=== PATIENT | female | born 1940 | race Caucasian/White ===

== ENCOUNTER → 2016-07-23 | Outpatient (CLI) | payer MEDICARE, MEDICAID ==
[~2016-07-23] MED LIST: /ATOR40TA; /ATOR40TA OR; /DOXA1TA; /DOXA1TA OR; /DULO30CA; /DULO30CA OR; /ESOM40CA; /ESOM40CA OR; /FENO48TA; /FENO48TA OR; /PANT40TA; ALB2.5NEB INH; ALDA25TA2 PO; ALPR0.5T3; ALPR0.5T3 OR; ALPR0.5T3 PO; AMLO10TA; AMLO10TA2 PO; AMLO10TAB OR; ASPI325T; ASPI325T OR; ASPI81TA7 PO; ASPI81TA85 PO; ATEN100T PO; ATEN25TA; ATEN25TA PO; ATEN50TA2 OR; AVAN8TAB3; AVAN8TAB3 OR; AVAP300T; AVAP300T OR; CALC1TAB30 PO; CALCCHW12; CALCCHW12 OR; CALCTAB22; CLON0.2T OR; COLA100C2; CRES20TA OR; CRES20TA PO; DOXA1TAB71 PO; ECOT325T5; FERR325T; FERR325T OR; FERR325T3 PO; FLEXERIL; FLON0.05; FLUT1SPR2; FURO40TA2; FURO40TA2 PO; GAVISCON; GAVISCON OR; GLIP10TA13 PO; GLIP10TA18; GLIP5TAB2; GLIP5TAB2 PO; GLUC500T; GLUC500T OR; HYDR100T PO; HYDR25T PO; HYDR25TA6; INSUDET SC; JANU100T PO; Januvia OR; KLOR10TA; KLOR10TA OR; LASI20TA PO; LASI40TA; LASI40TA OR; LEVE1INJ5 SC; LOSA100T36 PO; LOSARTAN OR; METF500T PO; METHY25TA PO; MULTIVIT; MULTIVIT OR; NASONEX; NIAS500T2 OR; NICO21PAT TD; NORC10TA2 PO; OMEGA 3; OMEGA 3 OR; SENN15TA2 OR; SENNA-DOCUSATE; SERT-138 PO; SERT100T; SERT50TA PO; SPIR25TA2 OR; TENO25TA; THERGRAN; TIRO25CA PO; TRAM50TA2; TRAZO50TA PO; TUMS500C; ULTR200T; ULTR200T OR; VICO5TAB; VICO5TAB OR; VITA200C; VITA400C; VITA400C OR; VITMTA PO; ZOLO100T; ZOLO100T OR; [UNRECOGNIZED DRUG - OTHER]; [UNRECOGNIZED DRUG - OTHER]; [UNRECOGNIZED DRUG - REMARK]; amiodipine; senna OR; vitamin d OR
--- NOTE | 2016-07-23 23:12 | ECWPNPC ---
PATIENT NAME: SOURAV DALE : 1940 GENDER: FEMALE VISIT DATE: 07/23/2016 DISCHARGE DATE: 07/23/16 1617 VISIT LOCKED DATE TIME: PHYSICIAN: DAYANNA MCQUEEN RESOURCE: DAYANNA MCQUENE REASON FOR APPOINTMENT 1. MEDS HISTORY OF PRESENT ILLNESS HISTORY OF PRESENT ILLNESS: HERE FOR F/U OF PERSISTENT LBP AND RIGHT LEG PAIN AND PARATHESIA. RATING PAIN VAS 10/10.USING HYDROCODONE 10/325 1Q 4-6 HR PRN PAIN.RECENT HOSPITALIZATION AFTER FALL INJURY.HAD SIJ INJECTION WHILE HOSPITALIZED THAT GAVE HER APROX. 2 DAYS IMPROVEMENT.HAS CUT DOWN ON HYDROCODONE TO 4 TAB DAILY.REPORTS THAT SHE HAS BEEN VERY DIZZY LATELY AND JUST DOESNT FEEL RIGHT.SHE FOLLOWS WITH NEPHROLOGY FOR BORDERLINE KIDNEY FUNCTION. PAIN THE PATIENT DESCRIBES THE PAIN... THE PATIENT DESCRIBES THE PAIN... THE PATIENT DESCRIBES THE PAIN... FALL RISK SCREENING: SCREENING :NO FALLS IN THE PAST YEAR CURRENT MEDICATIONS TAKING SERTRALINE HCL 100 MG TABLET 2 TABLET ORALLY DAILY TAKING FERROUS SULFATE 324 MG TABLET 1 TAB ORALLY DAILY TAKING ATENOLOL 50 50MG TABLET 1 ORAL BID TAKING CRESTOR 20 MG TABLET 1 TABLET ORALLY ONCE A DAY TAKING MULTI MINERALS-AMINO ACIDS CAPSULE 1 TAB ORALLY DAILY TAKING AMLODIPINE 10 MG 1 TAB(S) P.O. DAILY TAKING ASPIRIN ADULT LOW DOSE 81 MG TABLET DELAYED RELEASE 1 TABLET ORALLY ONCE A DAY TAKING ALBUTEROL SULFATE HFA 108 (90 BASE) MCG/ACT AEROSOL SOLUTION 2 PUFFS NEEDED INHALATION EVERY 4 HRS TAKING LEVOTHYROXINE SODIUM 25 MCG TABLET 1 TABLET ORALLY ONCE A DAY TAKING HYDRALAZINE HCL 25 MG TABLET 1 TABLET ORALLY BID PRN TAKING ALBUTEROL SULFATE (2.5 MG/3ML) 0.083% NEBULIZATION SOLUTION 3 ML INHALATION Q6HR NEEDED TAKING FUROSEMIDE 40 MG TABLET 1 TABLET ORALLY ONCE A DAY TAKING NICOTINE 21 MG/24HR PATCH 24 HOUR 1 PATCH TO SKIN TRANSDERMAL ONCE A DAY TAKING TRAZODONE HCL 50 MG TABLET 1 TABLET AT BEDTIME ORALLY ONCE A DAY TAKING LOSARTAN POTASSIUM 100 MG TABLET 1 TABLET ORALLY ONCE A DAY TAKING SPIRONOLACTONE 25 MG TABLET 1 TABLET ORALLY TWICE A DAY TAKING METHYLDOPA 250 MG TABLET 1 TABLET ORALLY TWICE A DAY TAKING JANUVIA 100 MG TABLET HALF TAB ORALLY DAILY TAKING GLIPIZIDE 5 MG TABLET 1 TABLET ORALLY BID TAKING CALCIUM 600 + D 600-400 MG-UNIT TABLET 1 TABLET ORALLY ONCE A DAY TAKING NORCO 10-325 MG TABLET 1 TABLET NEEDED ORALLY EVERY 6 H PRN MDD4 TAKING LEVEMIR 100 UNIT/ML SOLUTION 30 UNITS SUBCUTANEOUS TWICE A DAY NOT-TAKING DIAZEPAM 10 MG TABLET 1 TABLET ORALLY ONCE PRE PRPOCEDURE, NOTES: 12-18-15 1025 NOT-TAKING SENNA-GEN 8.6 MG TABLET 1 TAB ORALLY DAILY NOT-TAKING VITAMIN D 1.25 MG TABLET 1 TABLET ORALLY TWICE A MONTH NOT-TAKING DOXAZOSIN MESYLATE 1 MG TABLET 1 TABLET ORALLY BID NOT-TAKING POTASSIUM CHLORIDE 10 10 MEQ TABLET T TAB ORAL DAILY NOT-TAKING FLUTICASONE FUROATE 27.5 MCG/SPRAY SUSPENSION 2 PUFFS IN EACH NOSTRIL NASALLY ONCE A DAY NOT-TAKING METFORMIN HCL 500 MG TABLET 2 TABS IN AM, 1 TAB AT NOON, 2 TABS IN PM ORALLY TID NOT-TAKING NEXIUM 40 MG CAPSULE DELAYED RELEASE 1 TAB ORALLY DAILY NOT-TAKING VITAMIN E 400 UNIT CAPSULE 1 TAB ORALLY DAILY NOT-TAKING OMEGA 3 1000 MG CAPSULE 1 TAB ORALLY BID NOT-TAKING GAVISCON 80-14.2 MG TABLET CHEWABLE 2 TABS ORALLY DAILY DISCONTINUED CALCIUM 500 + D3 500-600 MG-UNIT TABLET ORALLY DISCONTINUED ENOXAPARIN SODIUM 40 MG/0.4ML SOLUTION 0.4 ML SUBCUTANEOUS ONCE A DAY DISCONTINUED ALPRAZOLAM 0.5 MG TABLET 1 TAB ORALLY BID, NOTES: 12-17-152119 DISCONTINUED CEFTRIAXONE SODIUM 1 GM SOLUTION RECONSTITUTED INTRAVENOUS BID, NOTES: 12-18-15 1000 MEDICATION LIST REVIEWED AND RECONCILED WITH THE PATIENT PAST MEDICAL HISTORY CONGESTIVE HEART FAILURE HYPERTENSION HIGH CHOLESTEROL ARTERIAL HEART DISEASE TYPE II DIABETES ACID REFLUX OSTEOARTHRITIS SCOLIOSIS DEGENERATIVE DISC DISEASE VERTIGO SHOULDER PAIN CIRCULATION PROBLEMS IN LOWER EXTREMITIES EMPHYSEMA ARRESTED TUBERCULOSIS KIDNEY STONES HEART MURMUR ULCERS, DUODINAL FIBROMYALGIA HIATAL HERNIA ALLERGIES BIAXIN: MENTAL ISSUES: SIDE EFFECTS ANSHU INHIBITORS: SHORTNESS OF BREATH: ALLERGY CLARITHROMYCIN: NAUSEA/VOMITING: SIDE EFFECTS TRAMADOL HCL: CONFUSION: CONTRAINDICATION CYMBALTA: CONFUSION: CONTRAINDICATION IBUPROFEN: BLEEDING ULCERS: CONTRAINDICATION HYDROXYZINE HCL: HALLUCINATIONS: CONTRAINDICATION SOCIAL HISTORY GENERAL: PAIN CLINIC PFS, CLERGY, PUBLIC HEALTH REFERRALS CLERGY REFERRAL NEEDED?NO WAS THE PROVIDER NOTIFIED OF ANY PERTINENT INFO?NO PFS REFERRAL NEEDED?NO PUBLIC HEALTH REFERRAL NEEDED?NO PATIENT: ____. REVIEW OF SYSTEMS CONSTITUTIONAL: ANY CHANGE IN YOUR MEDICAL CONDITION? NO . CHILLS NO . FEVER NO . INFECTION: DO YOU HAVE NEW INFECTIONS? NO . DO YOU HAVE HISTORY OF MRSA? NO . MUSCULOSKELETAL: ANY NEW PATTERNS OF PAIN OR NUMBNESS? YES, HAVING LOTS OF PAIN IN HER NECK TODAY, HEAD AND ACROSS HER NECK, AND UPPER BACK. ARMS AND HANDS ARE PAINFUL AND WEAK. . GASTROENTEROLOGY: ANY NEW CHANGE IN BOWEL CONTROL? NO . GENITOURINARY: ANY NEW CHANGE IN BLADDER CONTROL? NO . IS THERE A CHANCE YOU COULD BE ? NO . HEMATOLOGY/LYMPH: DO YOU TAKE ANY BLOOD THINNERS? (FOR EXAMPLE- COUMADIN, PLAVIX, AGGRENOX, PLATEL, PRADAXA, OR XARELTO) NO . WHEN WAS YOUR LAST DOSE? DATE: TIME: . NEUROLOGY: HAVE YOU FALLEN IN THE PAST 6 MONTHS? NO . ANY NEW EXTREMITY NUMBNESS OR WEAKNESS? NO . CARDIOLOGY: DO YOU HAVE A PACEMAKER OR DEFIBRILLATOR? NO . RESPIRATORY: HAVE YOU BEEN SICK IN THE PAST WEEK? NO . FEVER NO . FLU LIKE SYMPTOMS? NO . COUGH NO . INTEGUMENTARY: DO YOU HAVE ANY RASHES OR OPEN SORES? NO . ALLERGIC/IMMUNO: ARE YOU ALLERGIC TO SHELLFISH OR IV DYE? NO . ANY NEW ALLERGIES? NO . PSYCHIATRIC: DO YOU HAVE THOUGHTS OF HURTING YOURSELF OR SOMEONE ELSE? NO . ARE YOU ABUSED, NEGLECTED, OR IN AN UNSAFE ENVIRONMENT? NO . ENDOCRINOLOGY: ARE YOU DIABETIC? YES . OTHER: DO YOU NEED ANY PRESCRIPTIONS? YES . IF YES, PLEASE LIST: HYDROCODONE . ANY NEW PROBLEMS WITH YOUR MEDICATIONS? NO . WHEN DID YOU LAST EAT? ____ . WHEN DID YOU LAST DRINK? ____ . WHAT DID YOU LAST DRINK? ____ . NAME OF PERSON DRIVING YOU HOME? ____ . DO YOU HAVE ANY OTHER QUESTIONS OR CONCERNS NO . REVIEWED BY: PROVIDER: DAYANNA ROSSI . VITAL SIGNS WT 185 LBS, HT 64.5 IN, BMI 31.26 INDEX, BP 142/66 MM HG, HR 65 /MIN, RR 16 /MIN, TEMP 99.5 F, OXYGEN SAT % 93, NA INITIALS [id number], REVIEWED BY: CM. ASSESSMENTS LOW BACK PAIN DUE TO DISPLACEMENT OF INTERVERTEBRAL DISC - M51.26 (PRIMARY) CHRONIC PRESCRIPTION OPIATE USE - Z79.891 TREATMENT LOW BACK PAIN DUE TO DISPLACEMENT OF INTERVERTEBRAL DISC REFILL NORCO TABLET, 10-325 MG, 1 TABLET NEEDED, ORALLY, EVERY 6 H PRN MDD4, 30 DAY(S), 120, REFILLS 0 NOTES: ISTOP REGISTRY REVIEWED AND DEMNOSTRATES COMPLLIANCE. BRINGS IN MEDICATIONS WHICH IS APPROPRIATE FOR WHAT WAS DISPENSED. RECENT URINE TOXICOLOGY REVIEWED. NO UNAUTHORIZED MEDICATIONS. NO ILLICIT SUBSTANCES AND PRESCRIBED MEDICATIONS WERE PRESENT. URINE TOX TODAY, RISKS AND BENEFITS OF NARCOTIC/OPIOD MEDICATIONS WERE REVIEWED WITH PATIENT - THIS INCLUDES BUT IS NOT LIMITED TO RISK OF DEPENDANCE/DEVELOPMENT OF ADDICTION, MOOD DISTURBANCE AND DEPRESSION, OSTEOPOROSIS, HORMONAL AND LABIDAL CHANGES, RESPIRATORY DEPRESSION AND . PATIENT IS ADVISED NOT TO DRIVE WHILE ON THESE MEDICATIONS. PROCEDURE CODES G8783 BP SCR PRFRM RCMDD DEFIND SCR INTVL G8730 PAIN ASSESS POS TOOL F/U PLAN DOC 3016F PT SCRND UNHLTHY [place] USE 1123F ACP DISCUSS/DSCN MKR DOCD 1036F TOBACCO NON-USER 0518F FALL PLAN OF CARE DOCD G8427 DOC MEDS VERIFIED W/PT OR RE G8417 BMI >=30 CALCUATE W/FOLLOWUP 3288F FALL RISK ASSESSMENT DOCD DISPOSITION & COMMUNICATION FOLLOW UP 2 MONTHS ELECTRONICALLY SIGNED BY FLO SOSA ON 07/23/2016 AT 05:36 PM EDT DISCLAIMER : THIS IS A VISIT SUMMARY EXTRACTED FROM THE [employer] CHART. IT IS NOT A COPY OF THE [employer] PROGRESS NOTE. MTDD
== END ==
LOC: M PAIN 15:00
PROVIDERS: ATTEND Nurse Practitioner Family
DX: Z09 Encounter for follow-up examination after completed treatment for conditions other than malignant neoplasm (principal); G89.29 Other chronic pain; M51.26 Other intervertebral disc displacement, lumbar region; I50.9 Heart failure, unspecified; I10 Essential (primary) hypertension; I25.10 Atherosclerotic heart disease of native coronary artery without angina pectoris; E11.9 Type 2 diabetes mellitus without complications; K21.9 Gastro-esophageal reflux disease without esophagitis; E78.00 Pure hypercholesterolemia, unspecified; M19.90 Unspecified osteoarthritis, unspecified site; M41.9 Scoliosis, unspecified; I99.9 Unspecified disorder of circulatory system; J43.9 Emphysema, unspecified; R01.1 Cardiac murmur, unspecified; M79.7 Fibromyalgia; Z79.82 Long term (current) use of aspirin; Z79.899 Other long term (current) drug therapy; Z79.4 Long term (current) use of insulin; Z79.84 Long term (current) use of oral hypoglycemic drugs; Z88.5 Allergy status to narcotic agent; Z88.8 Allergy status to other drugs, medicaments and biological substances

== ENCOUNTER → 2016-08-02 | Outpatient (REF) | payer MEDICARE, MEDICAID | LOC: M LAB REF 16:46 | PROVIDERS: ATTEND Internal Medicine Medical Oncology | DX: C91.90 Lymphoid leukemia, unspecified not having achieved remission (principal) ==

== ENCOUNTER → 2016-08-24 | Outpatient (REF) | payer MEDICARE, MEDICAID | LOC: M LAB REF 16:58 | PROVIDERS: ATTEND Internal Medicine Nephrology | DX: R30.0 Dysuria (principal) ==

== ENCOUNTER → 2016-10-12 | Outpatient (CLI) | payer MEDICARE, MEDICAID ==
--- NOTE | 2016-10-13 23:28 | ECWPNPC ---
PATIENT NAME: SOURAV DALE : 1940 GENDER: FEMALE VISIT DATE: 10/12/2016 DISCHARGE DATE: 10/12/16 1551 VISIT LOCKED DATE TIME: PHYSICIAN: DAYANNA MCQUEEN RESOURCE: DAYANNA MCQUEEN REASON FOR APPOINTMENT 1. CHRONIC PAIN HISTORY OF PRESENT ILLNESS HISTORY OF PRESENT ILLNESS: HERE FOR F/U OF PERSISTENT LBP AND RIGHT LEG PAIN AND PARATHESIA. RATING PAIN VAS 10/10.USING HYDROCODONE 10/325 1Q 4-6 HR PRN PAIN.HAS CUT DOWN ON HYDROCODONE TO 4 TAB DAILY.REPORTS PERIODIC DIZZY SPELLS THAT IS A CHRONIC ISSUE.SHE FOLLOWS WITH NEPHROLOGY FOR BORDERLINE KIDNEY FUNCTION.OFFERED OPTIONS TO INCLUDE INJECTION THERAPY OR MEDICATION CHANGES BUT SHE DOES NOT WANT TO PURSUE ALTERNATIVES. PAIN THE PATIENT DESCRIBES THE PAIN... THE PATIENT DESCRIBES THE PAIN... THE PATIENT DESCRIBES THE PAIN... THE PATIENT DESCRIBES THE PAIN... FALL RISK SCREENING: SCREENING :NO FALLS IN THE PAST YEAR CURRENT MEDICATIONS TAKING SERTRALINE HCL 100 MG TABLET 2 TABLET ORALLY DAILY TAKING FERROUS SULFATE 324 MG TABLET 1 TAB ORALLY DAILY TAKING ATENOLOL 50 50MG TABLET 1 ORAL BID TAKING CRESTOR 20 MG TABLET 1 TABLET ORALLY ONCE A DAY TAKING MULTI MINERALS-AMINO ACIDS CAPSULE 1 TAB ORALLY DAILY TAKING AMLODIPINE 10 MG 1 TAB(S) P.O. DAILY TAKING ASPIRIN ADULT LOW DOSE 81 MG TABLET DELAYED RELEASE 1 TABLET ORALLY ONCE A DAY TAKING ALBUTEROL SULFATE HFA 108 (90 BASE) MCG/ACT AEROSOL SOLUTION 2 PUFFS NEEDED INHALATION EVERY 4 HRS TAKING LEVOTHYROXINE SODIUM 25 MCG TABLET 1 TABLET ORALLY ONCE A DAY TAKING HYDRALAZINE HCL 25 MG TABLET 1 TABLET ORALLY BID PRN TAKING ALBUTEROL SULFATE (2.5 MG/3ML) 0.083% NEBULIZATION SOLUTION 3 ML INHALATION Q6HR NEEDED TAKING FUROSEMIDE 40 MG TABLET 1 TABLET ORALLY ONCE A DAY TAKING NICOTINE 21 MG/24HR PATCH 24 HOUR 1 PATCH TO SKIN TRANSDERMAL ONCE A DAY TAKING TRAZODONE HCL 50 MG TABLET 1 TABLET AT BEDTIME ORALLY ONCE A DAY TAKING LOSARTAN POTASSIUM 100 MG TABLET 1 TABLET ORALLY ONCE A DAY TAKING METHYLDOPA 250 MG TABLET 1 TABLET ORALLY TWICE A DAY TAKING JANUVIA 100 MG TABLET HALF TAB ORALLY DAILY TAKING GLIPIZIDE 5 MG TABLET 1 TABLET ORALLY BID TAKING CALCIUM 600 + D 600-400 MG-UNIT TABLET 1 TABLET ORALLY ONCE A DAY TAKING LEVEMIR 100 UNIT/ML SOLUTION 30 UNITS SUBCUTANEOUS TWICE A DAY TAKING NORCO 10-325 MG TABLET 1 TABLET NEEDED ORALLY EVERY 6 H PRN MDD4 NOT-TAKING SPIRONOLACTONE 25 MG TABLET 1 TABLET ORALLY TWICE A DAY NOT-TAKING DIAZEPAM 10 MG TABLET 1 TABLET ORALLY ONCE PRE PRPOCEDURE, NOTES: 12-18-15 1025 NOT-TAKING SENNA-GEN 8.6 MG TABLET 1 TAB ORALLY DAILY NOT-TAKING VITAMIN D 1.25 MG TABLET 1 TABLET ORALLY TWICE A MONTH NOT-TAKING DOXAZOSIN MESYLATE 1 MG TABLET 1 TABLET ORALLY BID NOT-TAKING POTASSIUM CHLORIDE 10 10 MEQ TABLET T TAB ORAL DAILY NOT-TAKING FLUTICASONE FUROATE 27.5 MCG/SPRAY SUSPENSION 2 PUFFS IN EACH NOSTRIL NASALLY ONCE A DAY NOT-TAKING METFORMIN HCL 500 MG TABLET 2 TABS IN AM, 1 TAB AT NOON, 2 TABS IN PM ORALLY TID NOT-TAKING NEXIUM 40 MG CAPSULE DELAYED RELEASE 1 TAB ORALLY DAILY NOT-TAKING VITAMIN E 400 UNIT CAPSULE 1 TAB ORALLY DAILY NOT-TAKING OMEGA 3 1000 MG CAPSULE 1 TAB ORALLY BID NOT-TAKING GAVISCON 80-14.2 MG TABLET CHEWABLE 2 TABS ORALLY DAILY MEDICATION LIST REVIEWED AND RECONCILED WITH THE PATIENT PAST MEDICAL HISTORY CONGESTIVE HEART FAILURE HYPERTENSION HIGH CHOLESTEROL ARTERIAL HEART DISEASE TYPE II DIABETES ACID REFLUX OSTEOARTHRITIS SCOLIOSIS DEGENERATIVE DISC DISEASE VERTIGO SHOULDER PAIN CIRCULATION PROBLEMS IN LOWER EXTREMITIES EMPHYSEMA ARRESTED TUBERCULOSIS KIDNEY STONES HEART MURMUR ULCERS, DUODINAL FIBROMYALGIA HIATAL HERNIA ALLERGIES BIAXIN: MENTAL ISSUES: SIDE EFFECTS ANSHU INHIBITORS: SHORTNESS OF BREATH: ALLERGY CLARITHROMYCIN: NAUSEA/VOMITING: SIDE EFFECTS TRAMADOL HCL: CONFUSION: CONTRAINDICATION CYMBALTA: CONFUSION: CONTRAINDICATION IBUPROFEN: BLEEDING ULCERS: CONTRAINDICATION HYDROXYZINE HCL: HALLUCINATIONS: CONTRAINDICATION REVIEW OF SYSTEMS REVIEWED BY: PROVIDER: DAYANNA ROSSI . CONSTITUTIONAL: ANY CHANGE IN YOUR MEDICAL CONDITION? NO . CHILLS NO . FEVER NO . INFECTION: DO YOU HAVE NEW INFECTIONS? NO . DO YOU HAVE HISTORY OF MRSA? NO . MUSCULOSKELETAL: ANY NEW PATTERNS OF PAIN OR NUMBNESS? YES PAIN IS MORE CONSTANT . GASTROENTEROLOGY: ANY NEW CHANGE IN BOWEL CONTROL? NO . GENITOURINARY: ANY NEW CHANGE IN BLADDER CONTROL? NO . IS THERE A CHANCE YOU COULD BE ? NO . HEMATOLOGY/LYMPH: DO YOU TAKE ANY BLOOD THINNERS? (FOR EXAMPLE- COUMADIN, PLAVIX, AGGRENOX, PLATEL, PRADAXA, OR XARELTO) NO . WHEN WAS YOUR LAST DOSE? DATE: TIME: . NEUROLOGY: HAVE YOU FALLEN IN THE PAST 6 MONTHS? NO . ANY NEW EXTREMITY NUMBNESS OR WEAKNESS? NO . CARDIOLOGY: DO YOU HAVE A PACEMAKER OR DEFIBRILLATOR? NO . RESPIRATORY: HAVE YOU BEEN SICK IN THE PAST WEEK? NO . FEVER NO . FLU LIKE SYMPTOMS? NO . COUGH NO . INTEGUMENTARY: DO YOU HAVE ANY RASHES OR OPEN SORES? NO . ALLERGIC/IMMUNO: ARE YOU ALLERGIC TO SHELLFISH OR IV DYE? NO . ANY NEW ALLERGIES? NO . PSYCHIATRIC: DO YOU HAVE THOUGHTS OF HURTING YOURSELF OR SOMEONE ELSE? NO . ARE YOU ABUSED, NEGLECTED, OR IN AN UNSAFE ENVIRONMENT? NO . ENDOCRINOLOGY: ARE YOU DIABETIC? NO . OTHER: DO YOU NEED ANY PRESCRIPTIONS? YES PAIN MEDS HYDROCODONE 10/325 . IF YES, PLEASE LIST: ____ . ANY NEW PROBLEMS WITH YOUR MEDICATIONS? NO . WHEN DID YOU LAST EAT? ____ . WHEN DID YOU LAST DRINK? ____ . WHAT DID YOU LAST DRINK? ____ . NAME OF PERSON DRIVING YOU HOME? ____ . DO YOU HAVE ANY OTHER QUESTIONS OR CONCERNS NO . VITAL SIGNS WT 191.0 LBS, HT 64.5 IN, BMI 32.28 INDEX, BP 150/66 MM HG, HR 68 /MIN, RR 18 /MIN, TEMP 98.0 F, OXYGEN SAT % 96%, NA INITIALS TL 1516, REVIEWED BY: KG. EXAMINATION GENERAL EXAMINATION: LUNGS:LUNG SOUNDS ARE CLEAR. HEART:HEART RATE REGULAR. MUSCULOSKELETAL:*. MUSCULOSKELETAL:*, MUSCLE STRENGTH TESTING 3/5 BILATERAL, PALPATION: + FOR PAIN OVER L/S SPINE. + FOR PAIN OVER L/S PARSPINALS. ASSESSMENTS LOW BACK PAIN DUE TO DISPLACEMENT OF INTERVERTEBRAL DISC - M51.26 (PRIMARY) CHRONIC PRESCRIPTION OPIATE USE - Z79.891 TREATMENT LOW BACK PAIN DUE TO DISPLACEMENT OF INTERVERTEBRAL DISC REFILL NORCO TABLET, 10-325 MG, 1 TABLET NEEDED, ORALLY, EVERY 6 H PRN MDD4, 30 DAY(S), 120, REFILLS 0 NOTES: ISTOP REGISTRY REVIEWED AND DEMNOSTRATES COMPLLIANCE. BRINGS IN MEDICATIONS WHICH IS APPROPRIATE FOR WHAT WAS DISPENSED. RECENT URINE TOXICOLOGY REVIEWED. NO UNAUTHORIZED MEDICATIONS. NO ILLICIT SUBSTANCES AND PRESCRIBED MEDICATIONS WERE PRESENT. PROCEDURE CODES FA211 ESTABILISHED PATIENT [facility] FACILITY CHARGE G8730 PAIN ASSESS POS TOOL F/U PLAN DOC G8427 DOC MEDS VERIFIED W/PT OR RE DISPOSITION & COMMUNICATION FOLLOW UP 3 MONTHS ELECTRONICALLY SIGNED BY FLO SOSA ON 10/13/2016 AT 05:29 PM EDT DISCLAIMER : THIS IS A VISIT SUMMARY EXTRACTED FROM THE [employer] CHART. IT IS NOT A COPY OF THE [employer] PROGRESS NOTE. ALEX
== END | disposition home or self-care (01) ==
LOC: M PAIN 15:00
PROVIDERS: ATTEND Nurse Practitioner Family
DX: G89.29 Other chronic pain (principal); M51.26 Other intervertebral disc displacement, lumbar region; I50.9 Heart failure, unspecified; I11.0 Hypertensive heart disease with heart failure; E78.00 Pure hypercholesterolemia, unspecified; I48.91 Unspecified atrial fibrillation; E11.9 Type 2 diabetes mellitus without complications; K21.9 Gastro-esophageal reflux disease without esophagitis; M19.90 Unspecified osteoarthritis, unspecified site; M41.9 Scoliosis, unspecified; M25.519 Pain in unspecified shoulder; J43.9 Emphysema, unspecified; R01.1 Cardiac murmur, unspecified; M79.7 Fibromyalgia; K44.9 Diaphragmatic hernia without obstruction or gangrene; K26.9 Duodenal ulcer, unspecified as acute or chronic, without hemorrhage or perforation; Z79.899 Other long term (current) drug therapy; Z79.84 Long term (current) use of oral hypoglycemic drugs; Z79.4 Long term (current) use of insulin; Z79.82 Long term (current) use of aspirin; Z88.1 Allergy status to other antibiotic agents; Z88.5 Allergy status to narcotic agent; Z88.8 Allergy status to other drugs, medicaments and biological substances

== ENCOUNTER → 2016-11-08 | Outpatient (CLI) | payer MEDICARE, MEDICAID ==
[~2016-11-08] MED LIST changes: +ASPI1TAB PO; +ASPI1TAB15 PO; -ASPI81TA7 PO; +COLA100C5 PO; +COMBAER6 INH; -GLIP10TA13 PO; +GLIP1TAB51 PO; +HYDR-3363 PO; +HYDR-3910 PO; +HYDR-3911 PO; -HYDR25T PO; +HYDR50TA PO; +LEVA1TAB PO; +LEVO250T12; +LEVO250T12 PO; +MAGN400T PO; -METF500T PO; +METF500T13 PO; +MORP15TASA PO; +NICODIS TD; +NICODIS3 TD; -NORC10TA2 PO; +NORC10TA21 PO; +NORC1TAB4 PO; +NORCOTAB PO; +PRED10TA2 PO; +SYNT25TA PO; +TRAZ50TA11 PO
--- NOTE | 2016-11-08 16:44 | REP ---
Low-dose lung screening CT without IV contrast: There are no comparison studies. There is a 6.6 cm left lower lobe lung mass. This extends into the left hilus. Just posterior inferior to this is a satellite left lower lobe pleural-based nodule measuring 18 mm. I suspect the left hilus is diffusely enlarged, however, this is better evaluated on a chest CT with IV contrast. There is a 9 mm nodule anteriorly in the left upper lobe on image 32. There are several satellite nodules posterior to the left lower lobe lung mass measuring 6- 8 mm in diameter. There is a right upper lobe ground-glass nodule measuring 27 mm on image 38. Impression: Multiple lung nodules and masses as described. The largest mass is is in the left lower lobe and measures 6.6 cm. This is a category 4B finding with the probability of malignancy greater than 15%. Consider PET scan and tissue sampling. Signed by Christian Torres MD 11/08/2016 04:36 P
== END ==
LOC: M RAD 14:56
PROVIDERS: ATTEND Internal Medicine Medical Oncology
DX: Z87.891 Personal history of nicotine dependence (principal); R91.8 Other nonspecific abnormal finding of lung field

== ENCOUNTER 2016-11-22 17:09 | Inpatient (IN) | payer MEDICARE, MEDICAID ==
[~2016-11-22] VITALS: Ht 162.6 cm; Wt 86.0 kg
[~2016-11-22 17:09] MED LIST changes: -ASPI1TAB PO; -COLA100C5 PO; -COMBAER6 INH; -HYDR-3910 PO; -HYDR-3911 PO; -HYDR50TA PO; -LEVA1TAB PO; -LEVO250T12; -LEVO250T12 PO; -MAGN400T PO; -MORP15TASA PO; -NICODIS TD; -NICODIS3 TD; -NORC1TAB4 PO; -NORCOTAB PO; -PRED10TA2 PO; -SYNT25TA PO; -TRAZ50TA11 PO
[2016-11-22] MEDS ORDERED: IPRATROPIUM 0.5MG/ALBUTEROL 2.5MG INH SOL UD 3ML (DUONEB)(J7620) NEB ONE (20:00)
[2016-11-22 20:47] LABS: ADD MANUAL DIFFER YES; DIFF SLIDE NUMBER 342; MEAN CORPUSCULAR HEMOGLOBIN 26.4 pg (27.0-33.0); MEAN CORPUSCULAR HGB CONC 32.7 g/dl (32.0-36.5); MEAN CORPUSCULAR VOLUME 80.6 fl (80.0-96.0); RED CELL DISTRIBUTION WIDTH 14.4 % (11.5-14.5); WHITE BLOOD COUNT 14.4 K/mm3 (4.0-10.0)
[2016-11-22 20:49] LABS: INR 1.19
[2016-11-22] MEDS: METHYLDOPA 250 MG TAB PO SCH (21:00)
[2016-11-22] MEDS: NICOTINE 21MG/24HR 1 EA TRANSDERMAL TD SCH (21:00)
[2016-11-22 21:04] LABS: ALBUMIN 2.9 GM/DL (3.2-5.2); ALBUMIN/GLOBULIN RATIO 0.76 (1.00-1.93); BILIRUBIN,DIRECT 0.2 MG/DL (0.0-0.2); BILIRUBIN,TOTAL 0.4 MG/DL (0.2-1.0); CALCIUM LEVEL 8.8 MG/DL (8.8-10.2); CREATININE FOR GFR 1.58 MG/DL (0.55-1.02); GLOMERULAR FILTRATION RATE 33.7 (>39); POTASSIUM SERUM 4.1 MEQ/L (3.5-5.1); TOTAL PROTEIN 6.7 GM/DL (6.4-8.2)
[2016-11-22 21:37] LABS: EOSINOPHILS 7 % (0-5); PLATELET CLUMPS LARGE AMT; TOXIC VACUOLATION 2+
[2016-11-22] MEDS ORDERED: NORCO, ANEXSIA 5/325MG TABLET (HYDROcodone/ACETAMINOPHEN) PO ONE (22:00)
[2016-11-22] MEDS ORDERED: IPRATROPIUM 0.5MG/ALBUTEROL 2.5MG INH SOL UD 3ML (DUONEB)(J7620) NEB PRN (22:30)
[2016-11-22] MEDS: cefTRIAXone SOD 2 GM in D5W MINI-BAG PLUS 50 ML IV SCH (23:09)
[2016-11-22] MEDS ORDERED: SYNT25TA PO (23:11)
[2016-11-22] MEDS ORDERED: LOSA100T36 PO (23:11)
[2016-11-22] MEDS ORDERED: GLIP1TAB51 PO (23:11)
[2016-11-22] MEDS ORDERED: METHY25TA PO (23:11)
[2016-11-22] MEDS ORDERED: ATEN100T PO (23:11)
[2016-11-22] MEDS ORDERED: HYDR-3910 PO (23:11)
[2016-11-22] MEDS ORDERED: MAGN400T PO (23:11)
[2016-11-22] MEDS ORDERED: INSUDET SC (23:11)
[2016-11-22] MEDS ORDERED: COMBAER6 INH (23:11)
[2016-11-22] MEDS ORDERED: NICODIS TD (23:11)
[2016-11-22] MEDS ORDERED: TRAZ50TA11 PO (23:11)
[2016-11-22] MEDS ORDERED: ASPI1TAB PO (23:11)
[2016-11-22] MEDS ORDERED: SERT-138 PO (23:11)
[2016-11-22] MEDS ORDERED: FURO40TA2 PO (23:11)
[2016-11-22] MEDS ORDERED: FLUTICASONE PROP 0.05% NASAL SPRAY 16 GM (FLONASE) PRN (23:45)
[2016-11-22] MEDS ORDERED: NORCO, ANEXSIA 5/325MG TABLET (HYDROcodone/ACETAMINOPHEN) PO PRN (23:45)
[2016-11-23] MEDS: AZITHROMYCIN INJ 500 MG, VIAL MATE ADAPTER 1 EACH in D5W 250 ML IV SCH ×2 (00:24→22:45)
[2016-11-23 01:30] VITALS: BP 180/76
[2016-11-23] MEDS: ATENOLOL 50 MG TAB PO SCH ×3 (01:48→22:12)
[2016-11-23] MEDS: ROSUVASTATIN 10 MG TAB (CRESTOR) PO SCH ×2 (01:48→22:16)
[2016-11-23] MEDS: ASPIRIN 81 MG ENTERIC TAB PO SCH ×2 (01:48→22:12)
[2016-11-23] MEDS: **hydrALAZINE HCL** 25 MG TAB PO SCH ×3 (01:48→22:12)
[2016-11-23] MEDS: traZODone 50 MG TAB PO PRN (01:48)
--- NOTE | 2016-11-23 02:07 | HPEPDOC ---
Medical History and Physical Date of Admission Nov 22, 2016 at 22:27 History and Physical PRIMARY CARE PROVIDER: [Carmina Sierra SENIOR BILLING CONSULTANT] ATTENDING: Reyes Frost DO CHIEF COMPLAINT: [Shortness of breath, productive cough] HISTORY OF PRESENT ILLNESS: [Mrs. Escobar is a pleasant 75-year-old female presents to the emergency department this evening with productive sputum, cough , blood-tinged sputum. Her past medical history is significant for T-cell lymphoma, COPD, ANDREA, low back pain, CKD, CHF, diabetes, hypertension, hyperlipidemia, anxiety, tobacco use and hypothyroidism. She's had increasing lethargy, productive sputum, cough, subjective fevers, chills for the last 3-4 days. She's noticed some increased dyspnea on exertion. She denies any substernal chest pain. No major change in her appetite. Denies abdominal pain. States her bowel movements been regular. She denies any hematochezia or melena. She is voiding fine with no dysuria or frequency or hematuria. Upon presentation to the emergency department and further workup did show a clinical pneumonia with abnormal chest x-ray. She has an elevated PSI/port score indicating class V and that she is likely a better candidate for inpatient treatment for her pneumonia with IV antibiotics and supportive care.] PMHx: COPD ANDREA/CPAP-Adriel LBP/radiculopathy/PN- [facility] pain mgmt CKD- Sharda CAD CHF-TTE 09 EF65%/DD NIDDM HTN HLD Anxiety allergic rhinitis tobacco use hypothyroid Lg T cell Lymphoma-Poggi PSHX: colonoscopy EGD cholecystectomy hysterectomy HOME MEDS: as above ALLERGIES: ACEI clarithromycin NSAID milnacipran SOCHX: Resides in: [place] Marital Status: Kids: 2 Employment: retired Tobacco use: 1ppd ETOH: denies Illicit Drugs: Denies Recent travel: denies Advanced directives: HCP Son Klaus FAMHX: Children: Alive, well Unexpected deaths due to medical reasons: None. ROS: As noted in HPI, otherwise 11pt ROS of systems reviewed and unremarkable. States elbow pain and back pain improved now. PHYSICAL EXAMINATION: VITAL SIGNS: See below GENERAL APPEARANCE: [Alert, oriented, pleasant]. HEENT: [Unremarkable]. CARDIOVASCULAR: [Regular rate and rhythm]. LUNGS: [Diminished bibasilar breath sounds. Occasional rhonchi with clears with cough. On the left]. ABDOMEN: [Soft, nontender, nondistended. Positive bowel sounds, no mass or rebound]. MUSCULOSKELETAL: [No limitations]. EXTREMITIES: [No edema, no calf tenderness]. NEUROLOGICAL: [Cranial nerves II-12 grossly intact]. PSYCHIATRIC: [No suicidal ideation or audiovisual hallucinations]. LABORATORY DATA: See below. IMAGING: [ PA and lateral chest x-ray: Chronic changes noted with questionable early consolidation noted on the left.] MICROBIOLOGY: Please see below. ASSESSMENT: [ 1. Continue acquired pneumonia. 2. Leukocytosis secondary to infection. However, she has a normal lactate and no signs of sepsis. 3. Mild elevated creatinine. Will repeat labs in morning. 4. COPD 5. ANDREA/CPAP-Adriel 6. LBP/radiculopathy/PN- [facility] pain mgmt 7. CKD- Sharda 8. CAD 9. CHF-TTE 09 EF65%/DD 10. NIDDM 11. HTN 12. HLD 13. Anxiety 14. allergic rhinitis 15. tobacco use 16. hypothyroid 17. Lg T cell Lymphoma]. . PLAN: [Admitted to medical floor. Continue duo nebs, IV Rocephin and Zithromax. Check blood cultures, sputum cultures. Encourage smoking cessation. Continue NicoDerm patch. Acappella per respiratory therapy. Consistent carb diet with fingersticks before meals at bedtime, sliding scale insulin per [facility] protocol and long-acting Levemir 33 units twice a day per home regimen. Continue home medications except for oral antidiabetic medications. DVT prophylaxis subcutaneous heparin. Disposition anticipate she'll be hospitalized greater than to midnight. Starting tomorrow morning. She'll be followed by Dr. Kimble]. Vital Signs Vital Signs Date Time Temp Pulse Resp B/P (MAP) Pulse Ox O2 Delivery O2 Flow Rate FiO2 11/23/16 01:18 98.8 70 20 180/73 (108) 93 Room Air Laboratory Data Labs 24H Laboratory Tests 2 11/22/16 20:29: Neutrophils 71, Lymphocytes (Manual) 13L, Monocytes (Manual) 4, Eosinophils ( Manual) 7H, Atypical Lymphocytes 5, Toxic Vacuolation 2+, Platelet Estimate , Clumped Platelets LARGE AMT, Prothrombin Time 15.3H, Prothromb Time International Ratio 1.19, Activated Partial Thromboplast Time 34.3, Anion Gap 7L , Glomerular Filtration Rate 33.7L, Lactic Acid Level 1.2, Calcium Level 8.8, Aspartate Amino Transf (AST/SGOT) 40H, Alanine Aminotransferase (ALT/SGPT) 65, Alkaline Phosphatase 128H, Total Bilirubin 0.4, Direct Bilirubin 0.2, Total Creatine Kinase 87, Creatine Kinase MB 1.8, Creatine Kinase MB Relative Index 2.06, Troponin I 0.06, B-Type Natriuretic Peptide 229H, Total Protein 6.7, Albumin 2.9L, Albumin/Globulin Ratio 0.76L CBC/BMP Laboratory Tests 11/22/16 20:29 Red Blood Count 3.95 L, Mean Corpuscular Volume 80.6, Mean Corpuscular Hemoglobin 26.4 L, Mean Corpuscular Hemoglobin Concent 32.7, Red Cell Distribution Width 14.4 Home Medications Scheduled (Calcium 500+D 500-200 mg-Unit) 1 Tab Tab, 1 TAB PO BID Amlodipine Besylate (Amlodipine Besylate) 10 Mg Tab, 10 MG PO DAILY Aspirin (Aspirin) 81 Mg Tab, 81 MG PO QHS Aspirin (Aspirin 81) 81 Mg Tab, 81 MG PO QHS Atenolol (Atenolol) 100 Mg Tab, 100 MG PO BID Ferrous Sulfate (Ferrous Sulfate) 325 Mg Tab, 325 MG PO BID Furosemide (Furosemide) 40 Mg Tab, 20 MG PO DAILY Glipizide (Glipizide ER) 10 Mg Tab, 10 MG PO DAILY Glipizide (Glipizide ER) 10 Mg Tab, 5 MG PO QHS Hydralazine HCl (Hydralazine HCl) 25 Mg Tab, 25 MG PO BID Insulin Detemir (Levemir) 1 Units/0.01 Ml Susp, 33 UNITS SC BID Levothyroxine Sodium (Synthroid) 25 Mcg Tab, 25 MCG PO DAILY Losartan Potassium (Losartan Potassium) 100 Mg Tab, 100 MG PO DAILY Magnesium Oxide (Magnesium Oxide) 400 Mg Tab, 400 MG PO DAILY Methyldopa (Methyldopa) 250 Mg Tab, 250 MG PO BID Multivitamins *[facility] STOCKED* (Thera M Plus *[facility] STOCKED*) 1 Tab Tab, 1 TAB PO DAILY Nicotine (Nicotine Step 1) 21 Mg/24 Hr Dis, 21 MG TD QHS Rosuvastatin Calcium (Crestor) 20 Mg Tab, 20 MG PO QHS Sertraline HCl (Sertraline HCl) 100 Mg Tab, 200 MG PO DAILY Sitagliptin Phosphate (Januvia) 100 Mg Tab, 100 MG PO QHS Scheduled PRN Acetaminophen/Hydrocodone ([place] 10-325 mg) 1 Tab Tab, 1 TAB PO Q6H PRN for PAIN Albuterol/Ipratropium (Combivent Respimat 20-100 Mcg/Act) 1 Aer Aer, 1 PUFF INH QID PRN for SHORTNESS OF BREATH Fluticasone Propionate (Fluticasone Propionate 0.05%) 120 [place]/16 Gm Naspr, 2 SPRAY NA DAILY PRN for NASAL CONGESTION PER NOSTRIL Trazodone HCl (Trazodone HCl) 50 Mg Tab, 25 MG PO QHS PRN for INSOMNIA Allergies Coded Allergies: ANSHU Inhibitors (Verified Allergy, Severe, ORAL CAVITY SWELLING, 11/22/16) CI Pigment Blue 63 (Unverified Allergy, Unknown, 11/22/16) Duloxetine (Unverified Allergy, Unknown, 11/22/16) HAY FEVER (Verified Allergy, Unknown, 11/22/16) Hydroxyzine (Verified Allergy, Unknown, 11/22/16) Tramadol (Unverified Allergy, Unknown, 11/22/16) Milnacipran (Verified Adverse Reaction, Intermediate, DIZZINESS, HOT/COLD SWEATS, 11/22/16) NSAIDs (Verified Adverse Reaction, Intermediate, GI BLEEDING, 11/22/16) Clarithromycin (Verified Adverse Reaction, Mild, ALTERED LOC, 11/22/16) REYES FROST DO Nov 23, 2016 02:07
[2016-11-23] MEDS ORDERED: HEPARIN SOD (PORCINE) 5000 UNITS/ML VIAL SQ SCH (02:15)
[2016-11-23] MEDS: NORCO, ANEXSIA 5/325MG TABLET (HYDROcodone/ACETAMINOPHEN) PO PRN ×2 (04:48→14:19)
[2016-11-23] MEDS: LEVOTHYROXINE 25MCG TABLET (0.025MG) PO SCH (05:33)
[2016-11-23 06:00] VITALS: BP 140/80
[2016-11-23 06:56] LABS: MEAN CORPUSCULAR HEMOGLOBIN 27.2 pg (27.0-33.0); MEAN CORPUSCULAR HGB CONC 33.2 g/dl (32.0-36.5); MEAN CORPUSCULAR VOLUME 81.9 fl (80.0-96.0); RED CELL DISTRIBUTION WIDTH 14.3 % (11.5-14.5); WHITE BLOOD COUNT 12.2 K/mm3 (4.0-10.0)
[2016-11-23] MEDS: IPRATROPIUM 0.5MG/ALBUTEROL 2.5MG INH SOL UD 3ML (DUONEB)(J7620) NEB SCH ×3 (07:06→17:00)
[2016-11-23 07:16] LABS: CALCIUM LEVEL 8.6 MG/DL (8.8-10.2); CREATININE FOR GFR 1.29 MG/DL (0.55-1.02); GLOMERULAR FILTRATION RATE 42.6 (>39)
--- NOTE | 2016-11-23 07:48 | REP ---
PA and lateral chest: Comparisons are the chest CT dated 11/08/2016 and PA and lateral chest dated 12/16/2015. The patient's known left lower lobe mass is again identified. The left hilus appears enlarged. There are other lung nodules on the comparison CT, obscured on the current PA and lateral views. Cardiac size is normal. Right hilus is unremarkable. Bony thorax is unremarkable. Impression: Left lower lobe mass. Large left hilus. Signed by Christian Torres MD 11/23/2016 07:39 A
[2016-11-23] MEDS: LEVEMIR (INSULIN DETEMIR) 1 UNITS/0.01ML SC SCH ×2 (09:00→21:00)
[2016-11-23] MEDS: LOSARTAN 50 MG TAB PO SCH (10:32)
[2016-11-23] MEDS: amLODIPine 10 MG TAB PO SCH (10:32)
[2016-11-23] MEDS: SERTRALINE 100 MG TAB PO SCH (10:33)
[2016-11-23] MEDS: CALCIUM/VITAMIN D 500 MG TAB PO SCH ×2 (10:33→22:12)
[2016-11-23] MEDS: FERROUS SULFATE 325MG TAB PO SCH ×2 (10:33→22:12)
[2016-11-23] MEDS: MULTIVITAMINS/MINERALS THERAP 1 TAB PO SCH (10:34)
[2016-11-23] MEDS: METHYLDOPA 250 MG TAB PO SCH ×2 (10:34→22:18)
[2016-11-23] MEDS: FUROSEMIDE 20 MG TAB PO SCH (10:34)
[2016-11-23] MEDS: MAGNESIUM OXIDE 400 MG TAB (MAG-OX) PO SCH (10:34)
[2016-11-23 13:16] LABS: INR 1.21
[2016-11-23 13:21] LABS: PLTBLUE- EDTA FREE CALC 37 K/mm3 (172-450); PLTBLUE- EDTA FREE MACHINE 34 k/mm3 (172-450)
[2016-11-23] MEDS ORDERED: LIDOCAINE 1% MDV 20ML VIAL As Ordered ONE (15:57)
--- NOTE | 2016-11-23 16:48 | IPNPDOC ---
Text Note Date of Service The patient was seen on 11/23/16. NOTE Subjective: Patient states her dyspnea is much improved. No hemoptysis this morning. Objective: Vitals: (see below) General: No acute distress, laying comfortably in bed. HEENT: Moist mucous membranes. Neck: No JVD or lymphadenopathy Cardiac: RRR, No murmurs Pulm: Diminished breath sounds at the bases b/l. No wheezing, rhonchi Abd: NT/ND + BS Ext: No edema or cyanosis Labs (see below) Images: Chest x-ray on 11/22/16There are other lung nodules on the comparison CT, obscured on the current PA and lateral views. Cardiac size is normal. Right hilus is unremarkable. Bony thorax is unremarkable. Impression: Left lower lobe mass. Large left hilus. CT Chest low dose contrast 11/08/16 Impression: Multiple lung nodules and masses as described. The largest mass is is in the left lower lobe and measures 6.6 cm. This is a category 4B finding with the probability of malignancy greater than 15%. Consider PET scan and tissue sampling Assessment/Plan 1. Community-acquired pneumonia- patient is on Levaquin. Inflammatory markers improving. We will follow-up blood cultures. 2. Hemoptysis in the setting of large lung mass concerning for malignancy. Discussed with Dr. Spangler today, who has referred the patient to pulmonology however the patient has not been seen by them yet. Given her symptoms, we will arrange for the patient to have a CT-guided biopsy while inpatient. 3. History of COPD- stable continue nebs 4. ANDREA on CPAP 5. History of CAD 6. History of diastolic heart failure 7. Diabetes mellitus - continue current insulin regimen 8. History of hypertension- controlled continue current meds 9. Hyperlipidemia on statin 10. History of anxiety 11. History of tobacco abuse- cessation counseling 12. Hypothyroidism- on Synthroid 13. History of large T-cell lymphoma-follows up with Dr. Spangler 14. Platelet clumping- discussed with Dr. Spangler who recommends EDTA free platelet count, as the EDTA is causing the clumping, and this is not related to her underlying lymphoma. 15.CKD - Cr stable. Avoid nephrotoxins. DVT prophy: SCDs VS,Fishbone, I+O VS, Fishbone, I+O Laboratory Tests 11/22/16 20:29 Red Blood Count 3.95 L, Mean Corpuscular Volume 80.6, Mean Corpuscular Hemoglobin 26.4 L, Mean Corpuscular Hemoglobin Concent 32.7, Red Cell Distribution Width 14.4 11/23/16 06:11 Red Blood Count 3.64 L, Mean Corpuscular Volume 81.9, Mean Corpuscular Hemoglobin 27.2, Mean Corpuscular Hemoglobin Concent 33.2, Red Cell Distribution Width 14.3, Calcium Level 8.6 L Vital Signs Date Time Temp Pulse Resp B/P (MAP) Pulse Ox O2 Delivery O2 Flow Rate FiO2 11/23/16 14:19 20 11/23/16 10:32 169/70 11/23/16 10:32 74 11/23/16 07:43 Room Air 11/23/16 06:00 97.3 92 I&O- Last 24 Hours up to 6 AM 11/23/16 05:59 Intake Total 360 ml Output Total 0 ml Balance 360 ml MELI DOOLEY MD Nov 23, 2016 16:48
[2016-11-23] MEDS ORDERED: DEXTROSE 50% 50 ML SYRINGE IV PRN (17:00)
[2016-11-23] MEDS ORDERED: GLUCOSE 4 GM CHEW TABLET PO PRN (17:00)
[2016-11-23] MEDS ORDERED: GLUCAGON FOR INJ 1 MG VIAL (J1610) SC PRN (17:00)
--- NOTE | 2016-11-23 17:36 | REP ---
POSTBIOPSY CHEST: Single frontal view of the chest is performed status-post left lung biopsy. There is no pneumothorax. Left lower lobe mass was again noted. IMPRESSION: No pneumothorax status-post left lung biopsy. Signed by Christian Pretty MD 11/23/2016 08:14 P
[2016-11-23] MEDS: HumaLOG INSULIN (NovoLOG) PER UNIT SC SCH ×2 (17:37→21:00)
--- NOTE | 2016-11-23 17:43 | REP ---
CT GUIDED LEFT LOWER LOBE LUNG BIOPSY: The procedure was performed by TEO Montoya under the direct supervision of Dr. Pretty. The procedure along with its risks, benefits, and complications were discussed with the patient prior to the procedure. Informed consent was obtained both verbally and written. The patient was identified in the CT suite and placed on her right side on the CT table. An appropriate site within the left lung was chosen for needle entry. This area was marked, prepped and draped in the usual sterile fashion. Local infiltrative anesthesia was achieved using 1% Xylocaine. The guide needle was placed and advanced to the edge of the mass. The Gnammo biopsy device was advanced through the guide needle and six core biopsy specimens were obtained. Four of those specimens were placed in formalin and two of them were placed in a sterile cup and sent to the lab for further evaluation. The needle was removed and post biopsy imaging showed no pneumothorax. A bandage was applied to the site of entry. The patient tolerated the procedure well and was discharged back to her floor in good condition. Reviewed by TEO Kincaid 11/25/2016 12:06 PEdited and Signed by Christian Pretty MD 11/25/2016 01:24 P
[2016-11-23] MEDS: guaiFENesin/CODEINE SYRUP 5 ML UDC PO PRN (18:38)
[2016-11-23] MEDS: NICOTINE 21MG/24HR 1 EA TRANSDERMAL TD SCH (21:00)
[2016-11-23 22:00] VITALS: BP 174/72
[2016-11-23] MEDS: cefTRIAXone SOD 2 GM in D5W MINI-BAG PLUS 50 ML IV SCH (23:59)
[2016-11-24] MEDS: NORCO, ANEXSIA 5/325MG TABLET (HYDROcodone/ACETAMINOPHEN) PO PRN (00:41)
[2016-11-24] MEDS: LEVOTHYROXINE 25MCG TABLET (0.025MG) PO SCH (05:06)
[2016-11-24 06:00] VITALS: BP 198/90
[2016-11-24 06:47] LABS: MEAN CORPUSCULAR HEMOGLOBIN 27.2 pg (27.0-33.0); MEAN CORPUSCULAR HGB CONC 33.8 g/dl (32.0-36.5); MEAN CORPUSCULAR VOLUME 80.4 fl (80.0-96.0); RED CELL DISTRIBUTION WIDTH 14.3 % (11.5-14.5); WHITE BLOOD COUNT 17.1 K/mm3 (4.0-10.0)
[2016-11-24 06:51] LABS: PLTBLUE- EDTA FREE CALC 34 K/mm3 (172-450); PLTBLUE- EDTA FREE MACHINE 31 K/mm3 (172-450)
[2016-11-24 06:52] LABS: CALCIUM LEVEL 8.8 MG/DL (8.8-10.2); CREATININE FOR GFR 1.12 MG/DL (0.55-1.02); GLOMERULAR FILTRATION RATE 50.1 (>39); POTASSIUM SERUM 3.6 MEQ/L (3.5-5.1)
[2016-11-24] MEDS: IPRATROPIUM 0.5MG/ALBUTEROL 2.5MG INH SOL UD 3ML (DUONEB)(J7620) NEB SCH ×4 (07:10→19:44)
[2016-11-24] MEDS: HumaLOG INSULIN (NovoLOG) PER UNIT SC SCH ×5 (07:32→21:00)
[2016-11-24] MEDS ORDERED: LevoFLOXacin IV 500 MG in APPROPRIATE DILUENT 1 EA IV ONE (08:00)
[2016-11-24] MEDS: CALCIUM/VITAMIN D 500 MG TAB PO SCH ×2 (08:43→20:14)
[2016-11-24] MEDS: FERROUS SULFATE 325MG TAB PO SCH ×2 (08:43→20:14)
[2016-11-24] MEDS: amLODIPine 10 MG TAB PO SCH (08:43)
[2016-11-24] MEDS: SERTRALINE 100 MG TAB PO SCH (08:43)
[2016-11-24] MEDS: ATENOLOL 50 MG TAB PO SCH ×2 (08:43→20:14)
[2016-11-24] MEDS: MAGNESIUM OXIDE 400 MG TAB (MAG-OX) PO SCH (08:44)
[2016-11-24] MEDS: LOSARTAN 50 MG TAB PO SCH (08:44)
[2016-11-24] MEDS: **hydrALAZINE** 50 MG TAB PO SCH ×2 (08:44→20:13)
[2016-11-24] MEDS: MULTIVITAMINS/MINERALS THERAP 1 TAB PO SCH (08:45)
[2016-11-24] MEDS: METHYLDOPA 250 MG TAB PO SCH ×2 (08:45→20:14)
[2016-11-24] MEDS: FUROSEMIDE 20 MG TAB PO SCH (08:45)
[2016-11-24] MEDS: LEVEMIR (INSULIN DETEMIR) 1 UNITS/0.01ML SC SCH ×2 (10:25→20:15)
[2016-11-24] MEDS: MORPHINE 2 MG/ML 1ML SYRINGE IV PRN ×2 (13:23→17:52)
[2016-11-24 14:00] VITALS: BP 140/50
--- NOTE | 2016-11-24 14:44 | IPNPDOC ---
Text Note Date of Service The patient was seen on 11/24/16. NOTE Subjective: Patient states her dyspnea is improving. Productive cough. No hemoptysis this morning. Objective: Vitals: (see below) General: No acute distress, laying comfortably in bed. HEENT: Moist mucous membranes. Neck: No JVD or lymphadenopathy Cardiac: RRR, No murmurs Pulm: Diminished breath sounds at the bases b/l. No wheezing, rhonchi Abd: NT/ND + BS Ext: No edema or cyanosis Labs (see below) Images: Chest x-ray on 11/22/16There are other lung nodules on the comparison CT, obscured on the current PA and lateral views. Cardiac size is normal. Right hilus is unremarkable. Bony thorax is unremarkable. Impression: Left lower lobe mass. Large left hilus. CT Chest low dose contrast 11/08/16 Impression: Multiple lung nodules and masses as described. The largest mass is is in the left lower lobe and measures 6.6 cm. This is a category 4B finding with the probability of malignancy greater than 15%. Consider PET scan and tissue sampling Assessment/Plan 1. Community-acquired pneumonia- patient is on Levaquin. Inflammatory markers improving. We will follow-up blood cultures. 2. Hemoptysis in the setting of large lung mass concerning for malignancy. Discussed with Dr. Spangler today, who has referred the patient to pulmonology however the patient has not been seen by them yet. S/p CT-guided biopsy; pathology pending. 3. History of COPD- stable continue nebs 4. ANDREA on CPAP 5. History of CAD 6. History of diastolic heart failure 7. Diabetes mellitus - continue current insulin regimen 8. History of hypertension- controlled continue current meds 9. Hyperlipidemia on statin 10. History of anxiety 11. History of tobacco abuse- cessation counseling 12. Hypothyroidism- on Synthroid 13. History of large T-cell lymphoma-follows up with Dr. Spangler 14. Platelet clumping- discussed with Dr. Spangler who recommends EDTA free platelet count, as the EDTA is causing the clumping, and this is not related to her underlying lymphoma. 15.CKD - Cr stable. Avoid nephrotoxins. DVT prophy: SCDs VS,Fishbone, I+O VS, Fishbone, I+O Laboratory Tests 11/24/16 06:11 Red Blood Count 3.53 L, Mean Corpuscular Volume 80.4, Mean Corpuscular Hemoglobin 27.2, Mean Corpuscular Hemoglobin Concent 33.8, Red Cell Distribution Width 14.3, Calcium Level 8.8 Vital Signs Date Time Temp Pulse Resp B/P (MAP) Pulse Ox O2 Delivery O2 Flow Rate FiO2 11/24/16 13:33 18 11/24/16 09:49 Nasal Cannula 2.0 11/24/16 08:45 198/90 11/24/16 08:43 69 11/24/16 06:00 96.6 96 I&O- Last 24 Hours up to 6 AM 11/24/16 05:59 Intake Total 1200 ml Balance 1200 ml MELI DOOLEY MD Nov 24, 2016 14:44
[2016-11-24] MEDS: ROSUVASTATIN 10 MG TAB (CRESTOR) PO SCH (20:14)
[2016-11-24] MEDS: ASPIRIN 81 MG ENTERIC TAB PO SCH (20:14)
[2016-11-24] MEDS: NICOTINE 21MG/24HR 1 EA TRANSDERMAL TD SCH (20:15)
[2016-11-24 22:00] VITALS: BP 172/60
[2016-11-25] MEDS: NORCO, ANEXSIA 5/325MG TABLET (HYDROcodone/ACETAMINOPHEN) PO PRN ×3 (00:25→12:56)
[2016-11-25] MEDS: LEVOTHYROXINE 25MCG TABLET (0.025MG) PO SCH (05:28)
[2016-11-25 06:00] VITALS: BP 190/80
[2016-11-25] MEDS: IPRATROPIUM 0.5MG/ALBUTEROL 2.5MG INH SOL UD 3ML (DUONEB)(J7620) NEB SCH ×3 (07:20→23:01)
[2016-11-25 08:11] LABS: CALCIUM LEVEL 8.6 MG/DL (8.8-10.2); CREATININE FOR GFR 1.2 MG/DL (0.55-1.02); GLOMERULAR FILTRATION RATE 46.3 (>39); POTASSIUM SERUM 4.5 MEQ/L (3.5-5.1)
[2016-11-25] MEDS: HumaLOG INSULIN (NovoLOG) PER UNIT SC SCH ×4 (08:16→20:29)
[2016-11-25 08:19] LABS: WHITE BLOOD COUNT 14.7 K/mm3 (4.0-10.0)
[2016-11-25 08:20] LABS: MEAN CORPUSCULAR HEMOGLOBIN 26.7 pg (27.0-33.0); MEAN CORPUSCULAR HGB CONC 32.6 g/dl (32.0-36.5); RED CELL DISTRIBUTION WIDTH 14.7 % (11.5-14.5)
[2016-11-25] MEDS: **hydrALAZINE** 50 MG TAB PO SCH ×3 (08:54→17:58)
[2016-11-25] MEDS: amLODIPine 10 MG TAB PO SCH (08:55)
[2016-11-25] MEDS: FUROSEMIDE 20 MG TAB PO SCH (08:55)
[2016-11-25] MEDS: LOSARTAN 50 MG TAB PO SCH (08:55)
[2016-11-25] MEDS: MULTIVITAMINS/MINERALS THERAP 1 TAB PO SCH (08:55)
[2016-11-25] MEDS: METHYLDOPA 250 MG TAB PO SCH ×2 (08:55→20:21)
[2016-11-25] MEDS: SERTRALINE 100 MG TAB PO SCH (08:56)
[2016-11-25] MEDS: FERROUS SULFATE 325MG TAB PO SCH ×2 (08:56→20:24)
[2016-11-25] MEDS: ATENOLOL 50 MG TAB PO SCH ×2 (08:56→20:24)
[2016-11-25] MEDS: MAGNESIUM OXIDE 400 MG TAB (MAG-OX) PO SCH (08:56)
[2016-11-25] MEDS: CALCIUM/VITAMIN D 500 MG TAB PO SCH ×2 (08:56→20:21)
[2016-11-25] MEDS: LevoFLOXacin IV 250 MG in APPROPRIATE DILUENT 1 EA IV SCH (08:57)
[2016-11-25] MEDS: LEVEMIR (INSULIN DETEMIR) 1 UNITS/0.01ML SC SCH ×3 (09:00→20:25)
[2016-11-25 10:07] LABS: ERYTHROCYTE SEDIMENTATION RATE 72 mm/hr (0-30)
[2016-11-25 11:08] LABS: PLTBLUE- EDTA FREE CALC 33 K/mm3 (172-450); PLTBLUE- EDTA FREE MACHINE 30 K/mm3 (172-450)
[2016-11-25 11:52] VITALS: BP 148/67
[2016-11-25] MEDS: MORPHINE 2 MG/ML 1ML SYRINGE IV PRN ×3 (11:59→18:00)
[2016-11-25] MEDS: guaiFENesin/CODEINE SYRUP 5 ML UDC PO PRN (13:52)
[2016-11-25 14:00] VITALS: BP 160/72
--- NOTE | 2016-11-25 15:03 | IPNPDOC ---
Text Note Date of Service The patient was seen on 11/25/16. NOTE Subjective: Dyspnea is improving. Productive cough. Has chronic back pain which she is on opioids for. Objective: Vitals: (see below) General: No acute distress, laying comfortably in bed. HEENT: Moist mucous membranes. Neck: No JVD or lymphadenopathy Cardiac: RRR, No murmurs Pulm: Diminished breath sounds at the bases b/l. No wheezing, rhonchi Abd: NT/ND + BS Ext: No edema or cyanosis Labs (see below) Images: Chest x-ray on 11/22/16There are other lung nodules on the comparison CT, obscured on the current PA and lateral views. Cardiac size is normal. Right hilus is unremarkable. Bony thorax is unremarkable. Impression: Left lower lobe mass. Large left hilus. CT Chest low dose contrast 11/08/16 Impression: Multiple lung nodules and masses as described. The largest mass is is in the left lower lobe and measures 6.6 cm. This is a category 4B finding with the probability of malignancy greater than 15%. Consider PET scan and tissue sampling Assessment/Plan 1. Community-acquired pneumonia- patient is on Levaquin. Inflammatory markers improving. We will follow-up blood cultures. 2. Hemoptysis, with large LLL lung mass. S/p CT-guided biopsy; pathology with non small cell lung cancer. Awaiting call back from Dr. Spangler to discuss further plan. 3. History of COPD- stable continue nebs 4. ANDREA on CPAP 5. History of CAD 6. History of diastolic heart failure 7. Diabetes mellitus - continue current insulin regimen 8. History of hypertension- controlled continue current meds 9. Hyperlipidemia on statin 10. History of anxiety 11. History of tobacco abuse- cessation counseling 12. Hypothyroidism- on Synthroid 13. History of large T-cell lymphoma-follows up with Dr. Spangler 14. Platelet clumping- discussed with Dr. Spangler who recommends EDTA free platelet count, as the EDTA is causing the clumping, and this is not related to her underlying lymphoma. 15.CKD - Cr stable. Avoid nephrotoxins. DVT prophy: SCDs VS,Fishbone, I+O VS, Fishbone, I+O Laboratory Tests 11/25/16 07:02 Red Blood Count 3.56 L, Mean Corpuscular Volume 82.0, Mean Corpuscular Hemoglobin 26.7 L, Mean Corpuscular Hemoglobin Concent 32.6, Red Cell Distribution Width 14.7 H, Calcium Level 8.6 L Vital Signs Date Time Temp Pulse Resp B/P (MAP) Pulse Ox O2 Delivery O2 Flow Rate FiO2 11/25/16 14:00 16 11/25/16 11:58 148/67 11/25/16 11:52 68 11/25/16 09:00 Nasal Cannula 2.0 11/25/16 08:56 64 11/25/16 06:00 97.7 I&O- Last 24 Hours up to 6 AM 11/25/16 06:00 Intake Total 2140 ml Balance 2140 ml MELI DOOLEY MD Nov 25, 2016 15:03
[2016-11-25 18:00] VITALS: BP 167/70
--- NOTE | 2016-11-25 20:01 | CR.PDOC ---
[facility] Pain Clinic Consultation General Date of Consultation: 11/25/16 Consultation Report For: MELI DOOLEY MD Chief Complaint The patient is a 76-year-old female admitted with a reason for visit of Pneumonia. Pain management is asked to see her for her complaint of chronic pain. She is a long-term patient of our clinic. History of Present Illness Slime Escobar is a 76-year-old female known to our clinic, who is usually followed by [facility] and was last seen on 10/13/2016. Slime usually is able to manage her pain which has been present in the low back for years with small doses of hydrocodone 3-4 times per day. Does not take this on a very frequent basis. Is admitted on 11/22/2016 with increasing shortness of breath and cough and was found to have a pneumonia and a new left lobe lung mass. She did go for a CT-guided biopsy and patient and her son tell me today that she was found to have a new finding of cancer. She rates her pain level as varying from a 4-6/10 but notes when the pain begins to increase it is very hard to get under control recently. She has had some morphine IV 2 mg, which she did find helpful. She is also had hydrocodone 5/325 2 tablets every 4 hours for 4 to doses which she has found fairly good response. Patient and her son are interested in a long-acting pain medication, so that she will not have to remember to take her short acting pain medication and the pain will get ahead of her. He describes the pain as aching and throbbing. And she notes that not just in her back is bothering her, but that she hurts everywhere. Home Medications Scheduled (Calcium 500+D 500-200 mg-Unit) 1 Tab Tab, 1 TAB PO BID, (Reported) Amlodipine Besylate (Amlodipine Besylate) 10 Mg Tab, 10 MG PO DAILY, (Reported) Aspirin (Aspirin) 81 Mg Tab, 81 MG PO QHS, (Reported) Aspirin (Aspirin 81) 81 Mg Tab, 81 MG PO QHS, (Reported) Atenolol (Atenolol) 100 Mg Tab, 100 MG PO BID, (Reported) Ferrous Sulfate (Ferrous Sulfate) 325 Mg Tab, 325 MG PO BID, (Reported) Furosemide (Furosemide) 40 Mg Tab, 20 MG PO DAILY, (Reported) Glipizide (Glipizide ER) 10 Mg Tab, 10 MG PO DAILY, (Reported) Glipizide (Glipizide ER) 10 Mg Tab, 5 MG PO QHS, (Reported) Hydralazine HCl (Hydralazine HCl) 25 Mg Tab, 25 MG PO BID, (Reported) Insulin Detemir (Levemir) 1 Units/0.01 Ml Susp, 33 UNITS SC BID, (Reported) Levothyroxine Sodium (Synthroid) 25 Mcg Tab, 25 MCG PO DAILY, (Reported) Losartan Potassium (Losartan Potassium) 100 Mg Tab, 100 MG PO DAILY, (Reported) Magnesium Oxide (Magnesium Oxide) 400 Mg Tab, 400 MG PO DAILY, (Reported) Methyldopa (Methyldopa) 250 Mg Tab, 250 MG PO BID, (Reported) Multivitamins *[facility] STOCKED* (Thera M Plus *[facility] STOCKED*) 1 Tab Tab, 1 TAB PO DAILY, (Reported) Nicotine (Nicotine Step 1) 21 Mg/24 Hr Dis, 21 MG TD QHS, (Reported) Rosuvastatin Calcium (Crestor) 20 Mg Tab, 20 MG PO QHS, (Reported) Sertraline HCl (Sertraline HCl) 100 Mg Tab, 200 MG PO DAILY, (Reported) Sitagliptin Phosphate (Januvia) 100 Mg Tab, 100 MG PO QHS, (Reported) Scheduled PRN Acetaminophen/Hydrocodone ([place] 10-325 mg) 1 Tab Tab, 1 TAB PO Q6H PRN for PAIN , (Reported) Albuterol/Ipratropium (Combivent Respimat 20-100 Mcg/Act) 1 Aer Aer, 1 PUFF INH QID PRN for SHORTNESS OF BREATH, (Reported) Fluticasone Propionate (Fluticasone Propionate 0.05%) 120 Wilsey/16 Gm Naspr, 2 SPRAY NA DAILY PRN for NASAL CONGESTION, (Reported) PER NOSTRIL Trazodone HCl (Trazodone HCl) 50 Mg Tab, 25 MG PO QHS PRN for INSOMNIA, ( Reported) Allergies Coded Allergies: ANSHU Inhibitors (Verified Allergy, Severe, ORAL CAVITY SWELLING, 11/22/16) CI Pigment Blue 63 (Unverified Allergy, Unknown, 11/22/16) Duloxetine (Unverified Allergy, Unknown, 11/22/16) HAY FEVER (Verified Allergy, Unknown, 11/22/16) Hydroxyzine (Verified Allergy, Unknown, 11/22/16) Milnacipran (Verified Adverse Reaction, Intermediate, DIZZINESS, HOT/COLD SWEATS, 11/22/16) NSAIDs (Verified Adverse Reaction, Intermediate, GI BLEEDING, 11/22/16) Tramadol (Unverified Adverse Reaction, Intermediate, CONFUSION, 11/24/16) Clarithromycin (Verified Adverse Reaction, Mild, ALTERED LOC, 11/22/16) Past Medical History Medical History Past medical history includes [id number] diabetes, hypertension, hyperlipidemia, history of lymphoma followed by Dr. Liban Cox hypothyroidism on replacement, history of tobacco use, COPD, coronary artery disease. Strict of sleep apnea on CPAP and COPD Social History Social History History of tobacco use. Denies alcohol or other illicit substances. Lives independently but does have close family support Review of Systems Subjective Skin: Denies: lesions, rash, breakdown Pulmonary: Reports: cough (nonproductive), shortness of breath, dyspnea Cardiovascular: Denies: chest pain, edema, palpitations Gastrointestinal: Reports: constipation, Denies: loss of bowel control Genitourinary: Denies: dysuria, hematuria, loss of bladder control Hematologic: Reports: anemia (follows with Dr. grayson) Endocrine: Reports: Diabetes mellitus, Thyroid dysfunction Musculoskeletal: Reports: other (prominent low back pain with radiation across to the hips and pelvis generalized joint pain) Neurological: Reports: numbness, pre-existing deficit, Denies: headache, seizures, tremors, weakness, migraines Psych: Reports: mood normal, Denies: thoughts of self harm, thoughts of harming other Physical Examination Physical Examination Vital Signs/I&O Vital Signs Date Time Temp Pulse Resp B/P (MAP) Pulse Ox O2 Delivery O2 Flow Rate FiO2 11/25/16 18:10 16 11/25/16 18:00 69 167/70 (102) 11/25/16 14:00 98.0 96 Nasal Cannula 2.0 I&O- Last 24 Hours up to 6 AM 11/25/16 06:00 Intake Total 2140 ml Balance 2140 ml ENT EXAM: Positive: normocephalic Neck Exam: Negative: Lymphadenopathy, Thyromegaly Chest Exam: Positive: Clear to auscultation, Other (intermittent dry cough), Negative: Wheezing, Rales Heart Exam: Positive: Regular rate and rhythm, Normal S1, S2, Negative: Murmurs, Rubs Abdominal Exam: Positive: Normal bowel sounds, Soft, Nondistended Extremity Exam: Negative: Edema Skin Exam: Positive: Warm, Dry, Negative: Rashes, Lesions Neuro Exam: Positive: Muscle Strength U/L Ext., Normal Tone, Reflexes 2+ Psych Exam: Positive: Mental status NL, Mood NL Inspection of spine Tenderness with palpation over lumbar spinous processes and across the lumbosacral axis. Musculoskeletal Tenderness with palpation over the large joints of the shoulders, hips, knees and ankles. Able to rise to a standing position, Walker is used for balance Laboratory Data CBC/BMP Laboratory Tests 11/25/16 07:02 Red Blood Count 3.56 L, Mean Corpuscular Volume 82.0, Mean Corpuscular Hemoglobin 26.7 L, Mean Corpuscular Hemoglobin Concent 32.6, Red Cell Distribution Width 14.7 H, Calcium Level 8.6 L FSBS Laboratory Tests Test 11/24/16 20:27 11/25/16 11:42 Range/Units Bedside Glucose (Misc Panel) 192 211 83-110 MG/DL Microbiology Microbiology 11/23/16 Blood Culture - Preliminary, Resulted No Growth after 48 hours. All Specime... 11/23/16 Blood Culture - Preliminary, Resulted No Growth after 48 hours. All Specime... 11/23/16 Acid Fast Stain, Received Pending 11/23/16 Mycobacterial Culture, Received Pending 11/23/16 Fungal Smear, Received Pending 11/23/16 Fungal Culture, Received Pending 11/23/16 Gram Stain - Final, Complete 11/23/16 Body Fluid Culture - Final, Complete Assessment 1. Chronic low back pain . 2. Lumbar disc displacement without myelopathy. 3. Generalized joint pain Recommendation and Plan Discussion held with Deborah and her son regarding continued pain management options. Deborah would like to start on something that is more long-acting, to try to keep her pain under better control. I will take this opportunity to start her on morphine continuous release 15 mg every 12 hours. This will give us an opportunity to see how she does with the medication. While under close observation. She may use her short acting hydrocodone as needed. She is scheduled for follow-up in our clinic next Tuesday at 1045. Thank you , for allowing us to participate in the care of your patient, Deborah Baptist . Should you have any questions we will be glad to discuss this with you at any time please contact us here at the pain center at [phone]. Tarah Marie Nov 25, 2016 20:01
[2016-11-25] MEDS: ROSUVASTATIN 10 MG TAB (CRESTOR) PO SCH (20:21)
[2016-11-25] MEDS: MORPHINE 15 MG SA TAB PO SCH (20:24)
[2016-11-25] MEDS: ASPIRIN 81 MG ENTERIC TAB PO SCH (20:24)
[2016-11-25] MEDS: NICOTINE 21MG/24HR 1 EA TRANSDERMAL TD SCH (20:30)
[2016-11-25 22:00] VITALS: BP 164/70
[2016-11-26] MEDS: NORCO, ANEXSIA 5/325MG TABLET (HYDROcodone/ACETAMINOPHEN) PO PRN ×3 (01:01→17:25)
[2016-11-26] MEDS: **hydrALAZINE** 50 MG TAB PO SCH ×4 (01:03→20:54)
[2016-11-26] MEDS: LEVOTHYROXINE 25MCG TABLET (0.025MG) PO SCH (05:46)
[2016-11-26 05:50] VITALS: BP 150/60
[2016-11-26 07:09] LABS: MEAN CORPUSCULAR HEMOGLOBIN 26.4 pg (27.0-33.0); MEAN CORPUSCULAR HGB CONC 32.1 g/dl (32.0-36.5); RED CELL DISTRIBUTION WIDTH 14.7 % (11.5-14.5); WHITE BLOOD COUNT 16.5 K/mm3 (4.0-10.0)
[2016-11-26 07:21] LABS: CREATININE FOR GFR 1.18 MG/DL (0.55-1.02); GLOMERULAR FILTRATION RATE 47.2 (>39); POTASSIUM SERUM 3.9 MEQ/L (3.5-5.1)
[2016-11-26] MEDS: HumaLOG INSULIN (NovoLOG) PER UNIT SC SCH ×4 (07:30→21:08)
[2016-11-26] MEDS: IPRATROPIUM 0.5MG/ALBUTEROL 2.5MG INH SOL UD 3ML (DUONEB)(J7620) NEB SCH ×3 (07:59→23:04)
[2016-11-26] MEDS ORDERED: predniSONE 20 MG TAB PO SCH (09:00)
[2016-11-26] MEDS: MORPHINE 15 MG SA TAB PO SCH ×2 (09:18→20:53)
[2016-11-26] MEDS: SERTRALINE 100 MG TAB PO SCH (09:19)
[2016-11-26] MEDS: MULTIVITAMINS/MINERALS THERAP 1 TAB PO SCH (09:19)
[2016-11-26] MEDS: MAGNESIUM OXIDE 400 MG TAB (MAG-OX) PO SCH (09:19)
[2016-11-26] MEDS: amLODIPine 10 MG TAB PO SCH (09:19)
[2016-11-26] MEDS: ATENOLOL 50 MG TAB PO SCH ×2 (09:20→20:55)
[2016-11-26] MEDS: LOSARTAN 50 MG TAB PO SCH (09:20)
[2016-11-26] MEDS: FUROSEMIDE 20 MG TAB PO SCH (09:20)
[2016-11-26] MEDS: LEVEMIR (INSULIN DETEMIR) 1 UNITS/0.01ML SC SCH ×2 (09:21→20:55)
[2016-11-26] MEDS: FERROUS SULFATE 325MG TAB PO SCH ×2 (09:21→20:53)
[2016-11-26] MEDS: CALCIUM/VITAMIN D 500 MG TAB PO SCH ×2 (09:21→20:54)
[2016-11-26] MEDS: METHYLDOPA 250 MG TAB PO SCH ×2 (09:21→20:52)
[2016-11-26] MEDS: LevoFLOXacin IV 250 MG in APPROPRIATE DILUENT 1 EA IV SCH (09:23)
[2016-11-26 14:00] VITALS: BP 181/77
[2016-11-26] MEDS: guaiFENesin/CODEINE SYRUP 5 ML UDC PO PRN (15:57)
--- NOTE | 2016-11-26 16:55 | IPNPDOC ---
Text Note Date of Service The patient was seen on 11/26/16. NOTE Subjective: Dyspnea is improving. No acute changes overnight. Needing 2L O2. Objective: Vitals: (see below) General: No acute distress, laying comfortably in bed. HEENT: Moist mucous membranes. Neck: No JVD or lymphadenopathy Cardiac: RRR, No murmurs Pulm: Diminished breath sounds at the bases b/l. No wheezing, rhonchi Abd: NT/ND + BS Ext: No edema or cyanosis Labs (see below) Images: Chest x-ray on 11/22/16There are other lung nodules on the comparison CT, obscured on the current PA and lateral views. Cardiac size is normal. Right hilus is unremarkable. Bony thorax is unremarkable. Impression: Left lower lobe mass. Large left hilus. CT Chest low dose contrast 11/08/16 Impression: Multiple lung nodules and masses as described. The largest mass is is in the left lower lobe and measures 6.6 cm. This is a category 4B finding with the probability of malignancy greater than 15%. Consider PET scan and tissue sampling Assessment/Plan 1. Community-acquired pneumonia- patient is on Levaquin. Inflammatory markers improving. We will follow-up blood cultures. 2. Hemoptysis, with large LLL lung mass. S/p CT-guided biopsy; pathology with non small cell lung cancer. Spoke with Dr. Spangler who will f/u with patient early next week for PET scan. 3. History of COPD- stable continue nebs 4. ANDREA on CPAP 5. History of CAD 6. History of diastolic heart failure 7. Diabetes mellitus - continue current insulin regimen 8. History of hypertension- controlled continue current meds 9. Hyperlipidemia on statin 10. History of anxiety 11. History of tobacco abuse- cessation counseling 12. Hypothyroidism- on Synthroid 13. History of large T-cell lymphoma-follows up with Dr. Spangler 14. Platelet clumping- discussed with Dr. Spangler who recommends EDTA free platelet count, as the EDTA is causing the clumping, and this is not related to her underlying lymphoma. 15.CKD - Cr stable. Avoid nephrotoxins. DVT prophy: SCDs Prognosis guarded. VS,Fishbone, I+O VS, Fishbone, I+O Laboratory Tests 11/26/16 06:20 Red Blood Count 3.67 L, Mean Corpuscular Volume 82.0, Mean Corpuscular Hemoglobin 26.4 L, Mean Corpuscular Hemoglobin Concent 32.1, Red Cell Distribution Width 14.7 H, Calcium Level 9.0 Vital Signs Date Time Temp Pulse Resp B/P (MAP) Pulse Ox O2 Delivery O2 Flow Rate FiO2 11/26/16 14:00 97.8 70 16 181/77 (356) 97 Nasal Cannula 2.0 I&O- Last 24 Hours up to 6 AM 11/26/16 06:00 Intake Total 650 ml Output Total 1 ml Balance 649 ml MELI DOOLEY MD Nov 26, 2016 16:55
[2016-11-26] MEDS: ROSUVASTATIN 10 MG TAB (CRESTOR) PO SCH (20:52)
[2016-11-26] MEDS: ASPIRIN 81 MG ENTERIC TAB PO SCH (20:53)
[2016-11-26] MEDS: traZODone 50 MG TAB PO PRN (20:54)
[2016-11-26] MEDS: NICOTINE 21MG/24HR 1 EA TRANSDERMAL TD SCH (21:08)
[2016-11-26 22:00] VITALS: BP 166/84
[2016-11-27] MEDS: NORCO, ANEXSIA 5/325MG TABLET (HYDROcodone/ACETAMINOPHEN) PO PRN ×2 (00:16→19:22)
[2016-11-27] MEDS: LEVOTHYROXINE 25MCG TABLET (0.025MG) PO SCH (05:28)
[2016-11-27 06:00] VITALS: BP 154/80
[2016-11-27 06:54] LABS: MEAN CORPUSCULAR HEMOGLOBIN 26.5 pg (27.0-33.0); MEAN CORPUSCULAR HGB CONC 31.9 g/dl (32.0-36.5); MEAN CORPUSCULAR VOLUME 83.3 fl (80.0-96.0); RED CELL DISTRIBUTION WIDTH 14.8 % (11.5-14.5); WHITE BLOOD COUNT 14.9 K/mm3 (4.0-10.0)
[2016-11-27 07:03] LABS: CALCIUM LEVEL 9.2 MG/DL (8.8-10.2); CREATININE FOR GFR 1.43 MG/DL (0.55-1.02); GLOMERULAR FILTRATION RATE 37.8 (>39); POTASSIUM SERUM 3.8 MEQ/L (3.5-5.1)
[2016-11-27] MEDS: IPRATROPIUM 0.5MG/ALBUTEROL 2.5MG INH SOL UD 3ML (DUONEB)(J7620) NEB SCH ×3 (07:11→20:32)
[2016-11-27] MEDS ORDERED: NS 0.45% 1,000 ML IV SCH (08:00)
[2016-11-27] MEDS ORDERED: NS 1,000 ML IV SCH (08:00)
[2016-11-27] MEDS ORDERED: predniSONE 20 MG TAB PO SCH (09:00)
[2016-11-27] MEDS: HumaLOG INSULIN (NovoLOG) PER UNIT SC SCH ×4 (09:15→20:13)
[2016-11-27] MEDS: FERROUS SULFATE 325MG TAB PO SCH ×2 (09:40→20:11)
[2016-11-27] MEDS: SERTRALINE 100 MG TAB PO SCH (09:40)
[2016-11-27] MEDS: LevoFLOXacin IV 250 MG in APPROPRIATE DILUENT 1 EA IV SCH (09:41)
[2016-11-27] MEDS: amLODIPine 10 MG TAB PO SCH (09:42)
[2016-11-27] MEDS: **hydrALAZINE** 50 MG TAB PO SCH ×2 (09:42→20:10)
[2016-11-27] MEDS: CALCIUM/VITAMIN D 500 MG TAB PO SCH ×2 (09:42→20:10)
[2016-11-27] MEDS: MULTIVITAMINS/MINERALS THERAP 1 TAB PO SCH (09:42)
[2016-11-27] MEDS: MAGNESIUM OXIDE 400 MG TAB (MAG-OX) PO SCH (09:43)
[2016-11-27] MEDS: METHYLDOPA 250 MG TAB PO SCH ×2 (09:43→20:10)
[2016-11-27] MEDS: ATENOLOL 50 MG TAB PO SCH ×2 (09:45→20:09)
[2016-11-27] MEDS: LOSARTAN 50 MG TAB PO SCH (09:45)
[2016-11-27] MEDS: LEVEMIR (INSULIN DETEMIR) 1 UNITS/0.01ML SC SCH ×2 (09:46→20:12)
[2016-11-27] MEDS: MORPHINE 15 MG SA TAB PO SCH ×2 (09:57→20:11)
[2016-11-27] MEDS ORDERED: MOM 30ML SUSPENSION UDC PO PRN (10:45)
[2016-11-27] MEDS ORDERED: **hydrALAZINE** 50 MG TAB PO ONE (11:30)
--- NOTE | 2016-11-27 11:37 | IPNPDOC ---
Text Note Date of Service The patient was seen on 11/27/16. NOTE Subjective: Dyspnea is improving, weaning off O2. No acute changes overnight. Objective: Vitals: (see below) General: No acute distress, laying comfortably in bed. HEENT: Moist mucous membranes. Neck: No JVD or lymphadenopathy Cardiac: RRR, No murmurs Pulm: Diminished breath sounds at the bases b/l. No wheezing, rhonchi Abd: NT/ND + BS Ext: No edema or cyanosis Labs (see below) Images: Chest x-ray on 11/22/16There are other lung nodules on the comparison CT, obscured on the current PA and lateral views. Cardiac size is normal. Right hilus is unremarkable. Bony thorax is unremarkable. Impression: Left lower lobe mass. Large left hilus. CT Chest low dose contrast 11/08/16 Impression: Multiple lung nodules and masses as described. The largest mass is is in the left lower lobe and measures 6.6 cm. This is a category 4B finding with the probability of malignancy greater than 15%. Consider PET scan and tissue sampling Assessment/Plan 1. Community-acquired pneumonia- patient is on Levaquin. Inflammatory markers improving. Blood cultures negative. 2. Hemoptysis, with large LLL lung mass. S/p CT-guided biopsy; pathology with non small cell lung cancer. Spoke with Dr. Spangler who will f/u with patient early next week for PET scan. 3. History of COPD- stable continue nebs 4. ANDREA on CPAP 5. History of CAD 6. History of diastolic heart failure 7. Diabetes mellitus - BS elevated from prednisone. Prednisone dose decreased. Levemir increased. 8. History of hypertension- controlled continue current meds 9. Hyperlipidemia on statin 10. History of anxiety 11. History of tobacco abuse- cessation counseling 12. Hypothyroidism- on Synthroid 13. History of large T-cell lymphoma-follows up with Dr. Spangler 14. Platelet clumping- discussed with Dr. Spangler who recommends EDTA free platelet count, as the EDTA is causing the clumping, and this is not related to her underlying lymphoma. 15.CKD - Cr stable. Avoid nephrotoxins. DVT prophy: SCDs Prognosis guarded. Plan to d/c in the next 24 hr if continues to improve. VS,Fishbone, I+O VS, Fishbone, I+O Laboratory Tests 11/27/16 05:54 Red Blood Count 3.35 L, Mean Corpuscular Volume 83.3, Mean Corpuscular Hemoglobin 26.5 L, Mean Corpuscular Hemoglobin Concent 31.9 L, Red Cell Distribution Width 14.8 H, Calcium Level 9.2 Vital Signs Date Time Temp Pulse Resp B/P (MAP) Pulse Ox O2 Delivery O2 Flow Rate FiO2 11/27/16 09:57 16 11/27/16 09:45 176/74 11/27/16 09:45 66 11/27/16 09:00 Room Air 11/27/16 08:03 93 11/27/16 06:00 97.7 2.0 I&O- Last 24 Hours up to 6 AM 11/27/16 06:00 Intake Total 1740 ml Output Total 0 ml Balance 1740 ml MELI DOOLEY MD Nov 27, 2016 11:37
[2016-11-27] MEDS: DOCUSATE SODIUM 100 MG CAP PO SCH ×2 (11:39→20:10)
[2016-11-27] MEDS: MIRALAX *UNIT DOSE* 17GM PACKET PO SCH ×2 (11:39→20:13)
[2016-11-27 14:00] VITALS: BP 150/80
[2016-11-27] MEDS: ROSUVASTATIN 10 MG TAB (CRESTOR) PO SCH (20:09)
[2016-11-27] MEDS: ASPIRIN 81 MG ENTERIC TAB PO SCH (20:11)
[2016-11-27] MEDS: NICOTINE 21MG/24HR 1 EA TRANSDERMAL TD SCH (20:13)
[2016-11-27 22:00] VITALS: BP 158/84
[2016-11-28] MEDS: LEVOTHYROXINE 25MCG TABLET (0.025MG) PO SCH (05:10)
[2016-11-28 05:53] LABS: MEAN CORPUSCULAR HEMOGLOBIN 26.1 pg (27.0-33.0); MEAN CORPUSCULAR HGB CONC 31.1 g/dl (32.0-36.5); MEAN CORPUSCULAR VOLUME 83.7 fl (80.0-96.0); RED CELL DISTRIBUTION WIDTH 14.8 % (11.5-14.5); WHITE BLOOD COUNT 17.4 K/mm3 (4.0-10.0)
[2016-11-28 06:00] VITALS: BP 160/78
[2016-11-28] MEDS ORDERED: LevoFLOXacin 250 MG TABLET PO SCH (06:00)
[2016-11-28 06:07] LABS: CALCIUM LEVEL 9.3 MG/DL (8.8-10.2); CREATININE FOR GFR 1.34 MG/DL (0.55-1.02); GLOMERULAR FILTRATION RATE 40.7 (>39); POTASSIUM SERUM 4.1 MEQ/L (3.5-5.1)
[2016-11-28] MEDS: IPRATROPIUM 0.5MG/ALBUTEROL 2.5MG INH SOL UD 3ML (DUONEB)(J7620) NEB SCH (07:06)
[2016-11-28] MEDS: HumaLOG INSULIN (NovoLOG) PER UNIT SC SCH ×2 (07:30→13:01)
[2016-11-28] MEDS: MIRALAX *UNIT DOSE* 17GM PACKET PO SCH (08:32)
[2016-11-28] MEDS: **hydrALAZINE** 50 MG TAB PO SCH (08:33)
[2016-11-28] MEDS: ATENOLOL 50 MG TAB PO SCH (08:33)
[2016-11-28] MEDS: SERTRALINE 100 MG TAB PO SCH (08:33)
[2016-11-28] MEDS: amLODIPine 10 MG TAB PO SCH (08:33)
[2016-11-28 08:34] VITALS: BP 160/78
[2016-11-28] MEDS: LOSARTAN 50 MG TAB PO SCH (08:34)
[2016-11-28] MEDS: MAGNESIUM OXIDE 400 MG TAB (MAG-OX) PO SCH (08:34)
[2016-11-28] MEDS: METHYLDOPA 250 MG TAB PO SCH (08:34)
[2016-11-28] MEDS: FERROUS SULFATE 325MG TAB PO SCH (08:35)
[2016-11-28] MEDS: CALCIUM/VITAMIN D 500 MG TAB PO SCH (08:35)
[2016-11-28] MEDS: DOCUSATE SODIUM 100 MG CAP PO SCH (08:36)
[2016-11-28] MEDS: LEVEMIR (INSULIN DETEMIR) 1 UNITS/0.01ML SC SCH (08:36)
[2016-11-28] MEDS: MULTIVITAMINS/MINERALS THERAP 1 TAB PO SCH (08:36)
[2016-11-28] MEDS: MORPHINE 15 MG SA TAB PO SCH (08:36)
[2016-11-28] MEDS ORDERED: predniSONE 10 MG TAB PO SCH (09:00)
[2016-11-28] MEDS ORDERED: PRED10TA2 PO (10:47)
[2016-11-28] MEDS ORDERED: LEVA1TAB PO (10:47)
[2016-11-28] MEDS ORDERED: HYDR50TA PO (10:47)
[2016-11-28] MEDS ORDERED: COLA100C5 PO (10:47)
[2016-11-28] MEDS ORDERED: INSUDET SC ×2 (10:47)
[2016-11-28] MEDS ORDERED: NORCOTAB PO (11:05)
[2016-11-28] MEDS ORDERED: MORP15TASA PO (11:05)
--- NOTE | 2016-11-28 12:03 | DS.PDOC ---
Discharge Summary General Date of Admission Nov 22, 2016 at 22:27 Date of Discharge 11/28/16 Attending Physician: Haley Landry Discharge Summary PROCEDURES PERFORMED DURING STAY: CT-guided lung biopsy ADMITTING/DISCHARGE DIAGNOSES: 1. Community-acquired pneumonia- 2. Hemoptysis, with large LLL lung mass. S/p CT-guided biopsy; pathology with non small cell lung cancer. Spoke with Dr. Spangler who will f/u with patient early next week for PET scan. 3. History of COPD- stable continue nebs 4. ANDREA on CPAP 5. History of CAD 6. History of diastolic heart failure 7. Diabetes mellitus 8. History of hypertension- 9. Hyperlipidemia on statin 10. History of anxiety 11. History of tobacco abuse- cessation counseling 12. Hypothyroidism- on Synthroid 13. History of large T-cell lymphoma-follows up with Dr. Spangler 14. Platelet clumping- discussed with Dr. Spangler who recommends EDTA free platelet count, as the EDTA is causing the clumping, and this is not related to her underlying lymphoma. 15.CKD - Cr stable. Avoid nephrotoxins. COMPLICATIONS/CHIEF COMPLAINT: Shortness of breath HISTORY OF PRESENT ILLNESS/HOSPITAL COURSE: This is a 76-year-old female with past history of COPD, obstructive sleep apnea , diastolic heart failure who presents complaining of dyspnea. Patient has been complaining of dyspnea outpatient and had a recent CAT scan of the chest with Dr. Spangler with notable 6 cm left lower lobe mass. Patient was initially referred to pulmonology however has not been evaluated yet. Patient presents complaining of productive cough and was found to have community -acquired pneumonia for which she was treated with Levaquin. I did have a discussion with Dr. Spangler regarding this lung mass and the patient did have a CT-guided biopsy which confirmed non-small cell lung cancer for which the patient will be following up with Dr. Spangler in the next few day, and will likely be getting a PET scan by Dr. Spangler. The patient also had a COPD exacerbation secondary to the above and was subsequently treated with steroids and nebulizers. Patient was evaluated by pain management and was started on long-acting morphine. She'll be following up with pain management outpatient shortly. Patient is now hemodynamically stable, no longer requiring oxygen, and her blood pressure medications have been tapered as she has been hypertensive during hospitalization. DISCHARGE MEDICATIONS: Please see below. ALLERGIES: Please see below. PHYSICAL EXAMINATION ON DISCHARGE: Vitals: (see below) General: No acute distress, laying comfortably in bed. HEENT: Moist mucous membranes. Neck: No JVD or lymphadenopathy Cardiac: RRR, No murmurs Pulm: Diminished breath sounds at the bases b/l. No wheezing, rhonchi Abd: NT/ND + BS Ext: No edema or cyanosis LABORATORY DATA: Please see below. IMAGING: Chest x-ray on 11/22/16There are other lung nodules on the comparison CT, obscured on the current PA and lateral views. Cardiac size is normal. Right hilus is unremarkable. Bony thorax is unremarkable. Impression: Left lower lobe mass. Large left hilus. CT Chest low dose contrast 11/08/16 Impression: Multiple lung nodules and masses as described. The largest mass is is in the left lower lobe and measures 6.6 cm. This is a category 4B finding with the probability of malignancy greater than 15%. Consider PET scan and tissue sampling PROGNOSIS: Guarded ACTIVITY: As tolerated. DIET: Carbohydrate consistent. Low Na DISCHARGE PLAN/DISPOSITION: D/c home with family DISCHARGE INSTRUCTIONS: 1. Follow-up with PCP, Dr. Spangler, pain management, pulmonary in 1 week. Return to ED if symptoms worsen DISCHARGE CONDITION: Stable. TIME SPENT ON DISCHARGE: Greater than 30 minutes. Vital Signs/I&Os Vital Signs Date Time Temp Pulse Resp B/P (MAP) Pulse Ox O2 Delivery O2 Flow Rate FiO2 11/28/16 10:48 Room Air 11/28/16 08:36 20 11/28/16 08:34 160/78 11/28/16 08:33 70 11/28/16 06:00 97.7 92 11/27/16 21:10 2.0 I&O- Last 24 Hours up to 6 AM 11/28/16 05:59 Intake Total 1250 ml Balance 1250 ml Laboratory Data Labs 24H Laboratory Tests 2 11/27/16 16:57: Bedside Glucose (Misc Panel) 194H 11/27/16 20:11: Bedside Glucose (Misc Panel) 335H 11/28/16 05:11: Anion Gap 10, Glomerular Filtration Rate 40.7, Blood Urea Nitrogen 41H, Creatinine 1.34H, Sodium Level 140, Potassium Level 4.1, Chloride Level 105, Carbon Dioxide Level 25, Calcium Level 9.3, C-Reactive Protein, Quantitative 7.60H CBC/BMP Laboratory Tests 11/28/16 05:11 Red Blood Count 3.59 L, Mean Corpuscular Volume 83.7, Mean Corpuscular Hemoglobin 26.1 L, Mean Corpuscular Hemoglobin Concent 31.1 L, Red Cell Distribution Width 14.8 H, Calcium Level 9.3 FSBS Laboratory Tests Test 11/27/16 16:57 11/27/16 20:11 Range/Units Bedside Glucose (Misc Panel) 194 335 83-110 MG/DL Microbiology Microbiology 11/23/16 Blood Culture - Final, Complete NO GROWTH AFTER 5 DAYS 11/23/16 Blood Culture - Final, Complete NO GROWTH AFTER 5 DAYS 11/23/16 Acid Fast Stain, Received Pending 11/23/16 Mycobacterial Culture, Received Pending 11/23/16 Fungal Smear, Received Pending 11/23/16 Fungal Culture, Received Pending 11/23/16 Gram Stain - Final, Complete 11/23/16 Body Fluid Culture - Final, Complete Discharge Medications Scheduled (Calcium 500+D 500-200 mg-Unit) 1 Tab Tab, 1 TAB PO BID, (Reported) Amlodipine Besylate (Amlodipine Besylate) 10 Mg Tab, 10 MG PO DAILY, (Reported) Aspirin (Aspirin) 81 Mg Tab, 81 MG PO QHS, (Reported) Atenolol (Atenolol) 100 Mg Tab, 100 MG PO BID, (Reported) Docusate Sodium (Colace) 100 Mg Cap, 100 MG PO BID Ferrous Sulfate (Ferrous Sulfate) 325 Mg Tab, 325 MG PO BID, (Reported) Furosemide (Furosemide) 40 Mg Tab, 20 MG PO DAILY, (Reported) Glipizide (Glipizide ER) 10 Mg Tab, 10 MG PO DAILY, (Reported) Hydralazine HCl (Hydralazine HCl) 50 Mg Tab, 150 MG PO BID Insulin Detemir (Levemir) 1 Units/0.01 Ml Susp, 45 UNITS SC QAM Insulin Detemir (Levemir) 1 Units/0.01 Ml Susp, 15 UNITS SC QHS Levofloxacin Hemihydrate (Levaquin) 250 Mg Tab, 250 MG PO DAILY@06 Levothyroxine Sodium (Synthroid) 25 Mcg Tab, 25 MCG PO DAILY, (Reported) Losartan Potassium (Losartan Potassium) 100 Mg Tab, 100 MG PO DAILY, (Reported) Magnesium Oxide (Magnesium Oxide) 400 Mg Tab, 400 MG PO DAILY, (Reported) Methyldopa (Methyldopa) 250 Mg Tab, 250 MG PO BID, (Reported) Morphine Sulfate (Morphine Sulfate ER) 15 Mg Tabcr, 15 MG PO BID Multivitamins *[facility] STOCKED* (Thera M Plus *[facility] STOCKED*) 1 Tab Tab, 1 TAB PO DAILY, (Reported) Nicotine (Nicotine Step 1) 21 Mg/24 Hr Dis, 21 MG TD QHS, (Reported) Prednisone (Prednisone) 10 Mg Tab, 10 MG PO DAILY Rosuvastatin Calcium (Crestor) 20 Mg Tab, 20 MG PO QHS, (Reported) Sertraline HCl (Sertraline HCl) 100 Mg Tab, 200 MG PO DAILY, (Reported) Sitagliptin Phosphate (Januvia) 100 Mg Tab, 100 MG PO QHS, (Reported) Scheduled PRN Acetaminophen/Hydrocodone (Moore, Anexsia 5/325) 1 Tab Tab, 1 TAB PO Q4HP PRN for SEVERE PAIN (PS 8-10) Albuterol/Ipratropium (Combivent Respimat 20-100 Mcg/Act) 1 Aer Aer, 1 PUFF INH QID PRN for SHORTNESS OF BREATH, (Reported) Fluticasone Propionate (Fluticasone Propionate 0.05%) 120 Ransom/16 Gm Naspr, 2 SPRAY NA DAILY PRN for NASAL CONGESTION, (Reported) PER NOSTRIL Trazodone HCl (Trazodone HCl) 50 Mg Tab, 25 MG PO QHS PRN for INSOMNIA, ( Reported) Allergies Coded Allergies: ANSHU Inhibitors (Verified Allergy, Severe, ORAL CAVITY SWELLING, 11/22/16) CI Pigment Blue 63 (Unverified Allergy, Unknown, 11/22/16) Duloxetine (Unverified Allergy, Unknown, 11/22/16) HAY FEVER (Verified Allergy, Unknown, 11/22/16) Hydroxyzine (Verified Allergy, Unknown, 11/22/16) Milnacipran (Verified Adverse Reaction, Intermediate, DIZZINESS, HOT/COLD SWEATS, 11/22/16) NSAIDs (Verified Adverse Reaction, Intermediate, GI BLEEDING, 11/22/16) Tramadol (Unverified Adverse Reaction, Intermediate, CONFUSION, 11/24/16) Clarithromycin (Verified Adverse Reaction, Mild, ALTERED LOC, 11/22/16) MELI DOOLEY MD Nov 28, 2016 12:03
[2016-11-29] MEDS ORDERED: LEVO250T12 (14:22)
[2016-11-29] MEDS ORDERED: LEVO250T12 PO (18:11)
[2016-11-29] MEDS ORDERED: NORC1TAB4 PO (18:11)
[2016-11-29] MEDS ORDERED: INSUDET SC (18:11)
[2016-11-29] MEDS ORDERED: PRED10TA2 PO (18:11)
[2016-11-29] MEDS ORDERED: COLA100C5 PO (18:11)
[2016-11-29] MEDS ORDERED: NICODIS3 TD (18:11)
[2016-11-29] MEDS ORDERED: HYDR-3911 PO (18:11)
[2016-11-29] MEDS ORDERED: MORP15TASA PO (18:11)
[2016-11-29] MEDS ORDERED: GLIP1TAB51 PO ×2 (18:11)
== END 2016-11-28 15:01 | disposition home or self-care (01) | DRG 180 ==
LOC: M ED 17:09 → M ED INP 22:27 → M MS5PR 11-23 01:30
PROVIDERS: ADMIT Hospitalist; ATTEND Internal Medicine
PROC: 0BBL3ZX Excision of Left Lung, Percutaneous Approach, Diagnostic (ICD-10-PCS; principal; 2016-11-23)
DX: C34.32 Malignant neoplasm of lower lobe, left bronchus or lung (principal); J18.9 Pneumonia, unspecified organism; J44.0 Chronic obstructive pulmonary disease with (acute) lower respiratory infection; R04.2 Hemoptysis; I50.32 Chronic diastolic (congestive) heart failure; C91.50 Adult T-cell lymphoma/leukemia (HTLV-1-associated) not having achieved remission; I13.0 Hypertensive heart and chronic kidney disease with heart failure and stage 1 through stage 4 chronic kidney disease, or unspecified chronic kidney disease; Z99.89 Dependence on other enabling machines and devices; G47.33 Obstructive sleep apnea (adult) (pediatric); E03.9 Hypothyroidism, unspecified; F17.210 Nicotine dependence, cigarettes, uncomplicated; E78.5 Hyperlipidemia, unspecified; M51.26 Other intervertebral disc displacement, lumbar region; J30.1 Allergic rhinitis due to pollen; E11.9 Type 2 diabetes mellitus without complications; N18.9 Chronic kidney disease, unspecified; Z79.82 Long term (current) use of aspirin; Z79.4 Long term (current) use of insulin; Z79.899 Other long term (current) drug therapy; Z79.52 Long term (current) use of systemic steroids; Z88.1 Allergy status to other antibiotic agents; Z88.5 Allergy status to narcotic agent; Z88.8 Allergy status to other drugs, medicaments and biological substances; Z91.048 Other nonmedicinal substance allergy status; Z90.49 Acquired absence of other specified parts of digestive tract; Z90.710 Acquired absence of both cervix and uterus

== ENCOUNTER 2016-11-29 14:13 | Inpatient (IN) | payer MEDICARE, MEDICAID ==
[~2016-11-29] VITALS: Ht 162.6 cm; Wt 89.4 kg
[~2016-11-29 14:13] MED LIST changes: +ASPI1TAB PO; +COLA100C5 PO; +COMBAER6 INH; +HYDR-3910 PO; +HYDR50TA PO; +LEVA1TAB PO; +MAGN400T PO; +MORP15TASA PO; +NICODIS TD; +NORCOTAB PO; +PRED10TA2 PO; +SYNT25TA PO; +TRAZ50TA11 PO
[2016-11-29] MEDS ORDERED: LEVO250T12 (14:22)
--- NOTE | 2016-11-29 15:17 | REP ---
PORTABLE CHEST: AP portable view of the chest is performed and compare to a prior study of 11/23/2016. There is infiltrate/atelectasis in the left lung base, with an underlying left lower lobe mass seen on other prior exams. Right lung is unchanged in appearance with chronic interstitial opacities inferiorly. The cardiomediastinal silhouette is otherwise not definitely changed. IMPRESSION: There is an underlying left lower lobe mass. There is superimposed atelectasis/infiltrate in the left lung base. Signed by Christian Pretty MD 11/30/2016 12:31 P
[2016-11-29] MEDS: IPRATROPIUM 0.5MG/ALBUTEROL 2.5MG INH SOL UD 3ML (DUONEB)(J7620) NEB SCH ×4 (15:33→20:00)
[2016-11-29 16:18] LABS: INR 1.27
[2016-11-29 16:21] LABS: ADD MANUAL DIFFER YES; DIFF SLIDE NUMBER 277; MEAN CORPUSCULAR HEMOGLOBIN 26.3 pg (27.0-33.0); MEAN CORPUSCULAR HGB CONC 31.5 g/dl (32.0-36.5); MEAN CORPUSCULAR VOLUME 83.4 fl (80.0-96.0); WHITE BLOOD COUNT 19.9 K/mm3 (4.0-10.0)
[2016-11-29 16:24] LABS: BANDS 9 % (< 11); EOSINOPHILS 12 % (0-5)
[2016-11-29 16:25] LABS: PLATELET CLUMPS SMALL AMT
[2016-11-29 16:31] LABS: ALBUMIN 2.4 GM/DL (3.2-5.2); ALBUMIN/GLOBULIN RATIO 0.62 (1.00-1.93); BILIRUBIN,DIRECT 0.2 MG/DL (0.0-0.2); BILIRUBIN,TOTAL 0.4 MG/DL (0.2-1.0); CALCIUM LEVEL 9.2 MG/DL (8.8-10.2); CREATININE FOR GFR 1.51 MG/DL (0.55-1.02); GLOMERULAR FILTRATION RATE 35.5 (>39); POTASSIUM SERUM 4.3 MEQ/L (3.5-5.1); TOTAL PROTEIN 6.3 GM/DL (6.4-8.2)
[2016-11-29] MEDS ORDERED: FUROSEMIDE 40 MG/4 ML VIAL (J1940) IV ONE (16:45)
[2016-11-29] MEDS ORDERED: COLA100C5 PO (18:11)
[2016-11-29] MEDS ORDERED: LEVO250T12 PO (18:11)
[2016-11-29] MEDS ORDERED: NORC1TAB4 PO (18:11)
[2016-11-29] MEDS ORDERED: MORP15TASA PO (18:11)
[2016-11-29] MEDS ORDERED: HYDR-3911 PO (18:11)
[2016-11-29] MEDS ORDERED: GLIP1TAB51 PO ×2 (18:11)
[2016-11-29] MEDS ORDERED: PRED10TA2 PO (18:11)
[2016-11-29] MEDS ORDERED: NICODIS3 TD (18:11)
[2016-11-29] MEDS ORDERED: INSUDET SC (18:11)
[2016-11-29] MEDS ORDERED: BISACODYL 10 MG SUPP PR PRN (19:00)
[2016-11-29] MEDS ORDERED: ONDANSETRON 4MG/2ML VIAL (J2405) IV PRN (19:00)
[2016-11-29] MEDS ORDERED: GLUCOSE 4 GM CHEW TABLET PO PRN (20:00)
[2016-11-29] MEDS ORDERED: DEXTROSE 50% 50 ML SYRINGE IV PRN (20:00)
[2016-11-29] MEDS ORDERED: GLUCAGON FOR INJ 1 MG VIAL (J1610) SC PRN (20:00)
[2016-11-29 20:15] LABS: PLTBLUE- EDTA FREE CALC 42 K/mm3 (172-450); PLTBLUE- EDTA FREE MACHINE 38 k/mm3 (172-450)
--- NOTE | 2016-11-29 20:34 | ECGEPIP ---
Stationary ECG Study [facility] - ED Test Date: 2016-11-29 Pat Name: SOURAV DALE Department: Room: - Gender: F Engineer [employer]: diane : 1940 Requested By: ROMAINE ROSSI Order Number: [id number] Reading MD: Ness Forde Measurements Intervals [place] Rate: 67 P: 52 MN: 151 QRS: -9 QRSD: 106 T: 66 QT: 445 QTc: 471 Interpretive Statements SINUS RHYTHM NSTTW ABNORMALITY SIMILAR 12/16/15 Electronically Signed On 11-29-2016 20:34:43 EDT by Ness Forde
[2016-11-29] MEDS ORDERED: SENOKOT S TAB PO SCH (21:00)
[2016-11-29] MEDS ORDERED: traZODone 25MG PER 1/2 TABLET PO PRN (21:00)
[2016-11-29 22:04] VITALS: BP 172/62
--- NOTE | 2016-11-29 22:23 | HPE ---
DATE OF ADMISSION: 11/29/2016 ONCOLOGIST: Dr. Spangler PRIMARY CARE PROVIDER: Dr. Sierra ENVIRONMENTAL AID: Dr. Echevarria CHIEF COMPLAINT: Confusion and shortness of breath for one day, increased leg swelling and increasing 10 pound in body weight. PAST MEDICAL HISTORY: 1. Non small cell lung cancer of the left lower lobe. Pathology shows moderately differentiated adenocarcinoma diagnosed in November 2016. 2. Lymphocytic leukemia from 2014. 3. Recent pneumonia when she was admitted from 11/22 to 11/28/2016. 4. Chronic obstructive pulmonary disease (COPD). 5. Obstructive sleep apnea on continuous positive airway pressure (CPAP). 6. Diastolic congestive heart failure (CHF). 7. History of coronary artery disease. 8. Diabetes. 9. Hypertension. 10. Hyperlipidemia. 11. Hypothyroidism. 12. Chronic thrombocytopenia with platelet clumping. 13. Smoker. 14. History of anxiety. HISTORY OF PRESENT ILLNESS: This is a 76-year-old female who was recently hospitalized from 11/22 to 11/28/2016 when she was treated for community acquired pneumonia and also she was found to have a large left lower lung mass, for which she underwent a CT guided biopsy, which came back as moderated differentiated adenocarcinoma. The patient was set up with a followup appointment with oncologist and seed tester and discharged home yesterday. As per son, she was well yesterday and this morning she woke up confused, mumbling. She could not concentrate. She was staring in space and was asking the same questions again and again. Today, he also noted her to be short of breath and also noticed increased leg swelling and her body weight had gone up by 10 pounds since hospitalization. The patient also complained of abdominal discomfort and constipation, for which she continued to try to go to the bathroom again and again; however, was extremely weak and could hardly ambulate. Subsequently, the patient was brought to the hospital for evaluation of her confusion and shortness of breath. In the emergency department, the patient was noted to be in fluid overload and was diagnosed with diastolic congestive heart failure (CHF) exacerbation. She was noted to be hypoxic on arrival to 85%. Normally she does not use any oxygen at home. She received 40 mg of Lasix and was started on oxygen. The patient also received nebulizer, after which the patient's mental status improved and she became more lucid in the emergency room. The patient was discharged with levofloxacin. She had already received 6 days of levofloxacin and also received 2 days of ceftriaxone prior to that, so the patient has completed 8 days of antibiotics, so we will discontinue levofloxacin at this point. The patient is being admitted to the hospital for diastolic congestive heart failure (CHF). PAST SURGICAL HISTORY: 1. Colonoscopy and EGD. 2. Cholecystectomy. 3. Hysterectomy. 4. Lung biopsy. HOME MEDICATIONS: - acetaminophen/hydrocodone 5/325 mg one tablet every 4 hours as needed for pain - albuterol/ipratropium two puffs inhalation four times a day as needed for shortness of breath - amlodipine 10 mg daily - aspirin 81 mg daily - atenolol 100 mg twice a day - calcium - vitamin D one tablet by mouth twice a day - Colace 100 mg by mouth twice a day - ferrous sulfate 325 mg by mouth twice a day - fluticasone nasal spray two sprays in both nostrils daily - Lasix 20 mg daily - glipizide extended release 10 mg in the morning and 5 mg at bedtime - hydralazine 150 mg by mouth twice a day - Levemir insulin 33 units subcutaneously twice a day - levofloxacin 250 mg by mouth daily - Synthroid 25 mcg by mouth daily - losartan potassium 100 mg by mouth daily - magnesium oxide 400 mg by mouth daily - methyl dopa 250 mg by mouth twice a day - morphine sulfate 50 mg extended release one tablet by mouth twice a day - multivitamin one tablet daily - nicotine transdermal patch 7 mg daily - prednisone 10 mg daily - Crestor 20 mg at bedtime - sertraline 200 mg daily - Januvia 100 mg at bedtime - trazodone 25 mg at bedtime ALLERGIES: MILNACIPRAN. SOCIAL HISTORY: The patient smokes one pack per day and has smoked for more than 50 years. Denies any use of alcohol or recreational drugs. FAMILY HISTORY: Noncontributory. REVIEW OF SYSTEMS: All 11-point review of systems is negative except what is mentioned in the history of present illness. PHYSICAL EXAMINATION: VITAL SIGNS: Temperature 97.8, pulse 65, respiratory rate 22. Blood pressure 157/89, pulse oximetry 94% with 2 liters nasal cannula. GENERAL: The patient is awake, alert and oriented times three. Lying down in bed. In no acute distress. HEENT: Normocephalic, atraumatic. Moist mucous membranes. Anicteric eyes. CHEST: Bilateral basilar crackles. No wheezing. Overall decreased air entry. CARDIOVASCULAR: S1, S2 regular. No rub, murmur or gallop. ABDOMEN: Obese, soft, nontender. Bowel sounds present. EXTREMITIES: 3+ pedal edema. SKIN: There is bruising present on the inner aspect of left thigh. LABORATORY DATA: WBC 19.9, hemoglobin 9.4, platelets too low to be calculated. There is a small amount of clumping present. Neutrophils 65%, bands 9%, lymphocytes 12%, monocytes 2%, eosinophils 12%. Sodium 136, potassium 4.3, chloride 102, bicarbonate 28, BUN 41, creatinine 1.51 , glucose 305, lactic acid 1.1, calcium 9.2, BNP 1400. Liver functions are normal. Troponin elevated at 2.23. Chest x-ray showed left lower lobe mass. There is superimposed atelectasis versus infiltrate at the left lung base. There are chronic interstitial opacities. ASSESSMENT AND PLAN: This is a 76-year-old female admitted for shortness of breath and altered mental status due to acute diastolic congestive heart failure (CHF). 1. Acute diastolic congestive heart failure, we will place the patient on fluid restriction, given IV Lasix twice a day and monitor input and output and daily weights. 2. Acute metabolic encephalopathy, possibly due to combination of hypoxia from heart failure and pain medications, which seems to be better now. 3. Left lower lobe lung cancer, moderately differentiated adenocarcinoma. The patient will followup with Dr. Spangler as an outpatient. 4. Chronic lymphocytosis leukemia, diagnosed in 2015. Since then has been following with Dr. Spangler but never received any definitive treatment, as her white count was low. 5. Leukocytosis. Probably a combination of recovering pneumonia and being on prednisone, underlying leukemia, as well as acute stress reaction. We will continue to monitor. 6. Thrombocytopenia. The patient has chronic thrombocytopenia since 2015 and now it cannot be measured because of platelet clumping. We will get EDTA free platelet count. 7. Hypertension. We will continue with amlodipine, metoprolol, hydralazine. We will hold losartan at present. 8. Chronic obstructive pulmonary disease (COPD). We will continue with nebulizer solution every 6 hours. The patient may need to go home on oxygen. 9. Obstructive sleep apnea on CPAP. Continue. 10. History of coronary artery disease. 11. Hypothyroidism. Continue with Synthroid. 12. Anxiety. Continue with home medications. 13. Hyperlipidemia. Continue with statin. 14. Chronic kidney disease stage III. Creatinine seems to be stable. We will continue to monitor. 15. Diabetes. We will continue with Levemir and sliding scale insulin. We will hold Januvia and glipizide at present. 16. Insomnia and anxiety. Continue trazodone and sertraline. 17. Chronic pain. Continue with morphine twice a day, as well as acetaminophen/hydrocodone as needed as required. 18. Deep vein thrombosis (DVT) prophylaxis has been ordered. MTDD
[2016-11-29] MEDS: SENOKOT S TAB PO SCH (22:25)
[2016-11-29] MEDS: ATENOLOL 50 MG TAB PO SCH (22:25)
[2016-11-29] MEDS: ASPIRIN 81 MG ENTERIC TAB PO SCH (22:26)
[2016-11-29] MEDS: **hydrALAZINE** 50 MG TAB PO SCH (22:26)
[2016-11-29] MEDS: ROSUVASTATIN 10 MG TAB (CRESTOR) PO SCH (22:28)
[2016-11-29] MEDS: MORPHINE 15 MG SA TAB PO SCH (22:28)
[2016-11-29] MEDS: LEVEMIR (INSULIN DETEMIR) 1 UNITS/0.01ML SC SCH (22:33)
[2016-11-29] MEDS: HumaLOG INSULIN (NovoLOG) PER UNIT SC SCH (22:35)
[2016-11-29] MEDS: METHYLDOPA 250 MG TAB PO SCH (23:06)
[2016-11-30] VITALS: BP 118/58
[2016-11-30] MEDS: IPRATROPIUM 0.5MG/ALBUTEROL 2.5MG INH SOL UD 3ML (DUONEB)(J7620) NEB SCH ×4 (02:03→20:57)
[2016-11-30 04:00] VITALS: BP 118/56
[2016-11-30] MEDS ORDERED: LevoFLOXacin 250 MG TABLET PO SCH (06:00)
[2016-11-30 06:05] LABS: PLTBLUE- EDTA FREE CALC 37 K/mm3 (172-450); PLTBLUE- EDTA FREE MACHINE 34 k/mm3 (172-450)
[2016-11-30 06:18] LABS: CALCIUM LEVEL 8.9 MG/DL (8.8-10.2); CREATININE FOR GFR 1.35 MG/DL (0.55-1.02); GLOMERULAR FILTRATION RATE 40.4 (>39); POTASSIUM SERUM 3.4 MEQ/L (3.5-5.1)
[2016-11-30 06:28] LABS: ADD MANUAL DIFFER YES; DIFF SLIDE NUMBER 98; MEAN CORPUSCULAR HEMOGLOBIN 26.6 pg (27.0-33.0); MEAN CORPUSCULAR HGB CONC 32.6 g/dl (32.0-36.5); MEAN CORPUSCULAR VOLUME 81.7 fl (80.0-96.0); RED CELL DISTRIBUTION WIDTH 14.8 % (11.5-14.5); WHITE BLOOD COUNT 17.5 K/mm3 (4.0-10.0)
[2016-11-30] MEDS: FUROSEMIDE 40 MG/4 ML VIAL (J1940) IV SCH ×2 (06:38→17:18)
[2016-11-30 07:10] LABS: BANDS 1 % (< 11); EOSINOPHILS 8 % (0-5)
[2016-11-30 07:11] LABS: PLATELET CLUMPS MODERATE AMT
[2016-11-30 08:00] VITALS: BP 150/58
[2016-11-30] MEDS ORDERED: POTASSIUM CHLORIDE 10 MEQ SR TABLET PO ONE (08:15)
[2016-11-30] MEDS: **hydrALAZINE** 50 MG TAB PO SCH ×2 (08:41→21:00)
[2016-11-30] MEDS: HumaLOG INSULIN (NovoLOG) PER UNIT SC SCH ×4 (08:46→21:00)
[2016-11-30] MEDS: predniSONE 5 MG TAB PO SCH (08:49)
[2016-11-30] MEDS: METHYLDOPA 250 MG TAB PO SCH ×2 (08:49→21:15)
[2016-11-30] MEDS: amLODIPine 10 MG TAB PO SCH (08:51)
[2016-11-30] MEDS: ATENOLOL 50 MG TAB PO SCH ×2 (08:51→21:17)
[2016-11-30] MEDS: SENOKOT S TAB PO SCH ×2 (08:52→21:00)
[2016-11-30] MEDS ORDERED: predniSONE 10 MG TAB PO SCH (09:00)
[2016-11-30] MEDS: MIRALAX *UNIT DOSE* 17GM PACKET PO SCH (09:00)
[2016-11-30] MEDS: MORPHINE 15 MG SA TAB PO SCH ×2 (09:01→21:16)
[2016-11-30] MEDS: SERTRALINE 100 MG TAB PO SCH (09:02)
[2016-11-30] MEDS: LEVEMIR (INSULIN DETEMIR) 1 UNITS/0.01ML SC SCH ×2 (09:03→21:00)
[2016-11-30] MEDS: LEVOTHYROXINE 25MCG TABLET (0.025MG) PO SCH (09:08)
[2016-11-30 11:40] VITALS: BP 128/52
[2016-11-30] MEDS ORDERED: SLF 3 ML SYR IV PRN (14:15)
[2016-11-30] MEDS: NORCO, ANEXSIA 5/325MG TABLET (HYDROcodone/ACETAMINOPHEN) PO PRN (14:43)
--- NOTE | 2016-11-30 15:07 | IPN ---
DATE: 11/30/2016 A 76-year-old female seen at bedside, resting comfortably. She feels that she is diuresing well. She feels that she is breathing better and her lower extremity edema is much improved. Her son is present at the bedside. We did have a discussion regarding end-of-life and medical orders for life-sustaining treatment (MOLST) form. Currently, she informs me that she does wish to be resuscitated should something happen. OBJECTIVE: VITAL SIGNS: Temperature is 97.3, pulse 66, respiratory rate is 20, blood pressure 128/52, SPO2 is 94% on room air. GENERAL: The patient appears to be in no acute distress. She is alert, oriented, pleasant. HEENT: Unremarkable. Unable to determine jugular venous distention (JVD) due to body habitus. LUNGS: Diminished bibasilar breath sounds, occasional wheeze. HEART: Regular rate and rhythm. ABDOMEN: Obese, soft, nontender. EXTREMITIES. 2+ edema at the mid mills. No calf tenderness. LABORATORY DATA: White count 17.5 down from 19.9, hemoglobin 9.3 and platelets are marked as decreased which is improved from a marked decrease. Sodium 143, potassium 3.4 which we supplemented, chloride 107, bicarbonate 26, anion gap 10, BUN 40, creatinine 1.35, glucose 117. ASSESSMENT AND PLAN: 1. Acute diastolic congestive heart failure. We will continue on net negative Lasix. Monitor input and output, daily weights, and fluid restriction at 1500 mL a day. She does appear to be improved. 2. Acute metabolic encephalopathy, possibly due to the combination of hypoxia, heart failure and medications. She does appear to be back to her baseline. 3. Left lower lobe lung cancer, moderately differentiated adenocarcinoma. Followup outpatient with Dr. Spangler. 4. Chronic lymphocytic leukemia, diagnosed in 2014. Followup with Dr. Spangler. This appears to be stable. We will continue to monitor. 5. Leukocytosis, likely from recovering from pneumonia. This does appear to be trending downward. 6. Thrombocytopenia, chronic. Free platelet estimation does appear to be slightly improved from yesterday. 7. Hypertension. Continue with amlodipine, metoprolol, hydralazine, hold losartan for the time being. 8. Chronic obstructive pulmonary disease (COPD), doing well on nebulizers. If she needs home oxygen, we will need to qualify her before she leaves. 9. Obstructive sleep apnea, on continuous positive airway pressure (CPAP). 10. Coronary artery disease. 11. Hypothyroidism. Continue on Synthroid. 12. Anxiety, stable on medications. 13. Hyperlipidemia. Continue on statin. 14. Chronic kidney disease (CKD), stage III. Creatinine appears to be stable. We will continue to monitor. 15. Diabetes. Continue to monitor with sliding scale adjustment. Januvia is on hold as well as glipizide until after discharge. 13. Insomnia. Doing well on trazodone and sertraline. 14. Chronic back pain, stable on Marlow. 15. Deep vein thrombosis (DVT) prophylaxis is on board. DISPOSITION: Anticipate home discharge in the next two or three days once she appears to be more euvolemic.
[2016-11-30 16:00] VITALS: BP 132/60
[2016-11-30 20:22] VITALS: BP 146/58
[2016-11-30] MEDS: ROSUVASTATIN 10 MG TAB (CRESTOR) PO SCH (21:15)
[2016-11-30] MEDS: ASPIRIN 81 MG ENTERIC TAB PO SCH (21:15)
[2016-11-30] MEDS: SLF 3 ML SYR IV SCH (21:19)
[2016-12-01] VITALS (7 sets, daily range): BP systolic 122–168; BP diastolic 42–72
[2016-12-01] MEDS: IPRATROPIUM 0.5MG/ALBUTEROL 2.5MG INH SOL UD 3ML (DUONEB)(J7620) NEB SCH ×4 (04:07→20:04)
[2016-12-01] MEDS: NORCO, ANEXSIA 5/325MG TABLET (HYDROcodone/ACETAMINOPHEN) PO PRN ×2 (04:12→17:07)
[2016-12-01] MEDS: FUROSEMIDE 40 MG/4 ML VIAL (J1940) IV SCH ×2 (05:48→17:03)
[2016-12-01] MEDS: LEVOTHYROXINE 25MCG TABLET (0.025MG) PO SCH (05:48)
[2016-12-01] MEDS: SLF 3 ML SYR IV SCH ×3 (05:49→21:31)
[2016-12-01 05:52] LABS: ADD MANUAL DIFFER YES; DIFF SLIDE NUMBER 63; MEAN CORPUSCULAR HEMOGLOBIN 26.6 pg (27.0-33.0); MEAN CORPUSCULAR HGB CONC 32.8 g/dl (32.0-36.5); MEAN CORPUSCULAR VOLUME 81.1 fl (80.0-96.0); WHITE BLOOD COUNT 17.7 K/mm3 (4.0-10.0)
[2016-12-01 06:09] LABS: CALCIUM LEVEL 9.1 MG/DL (8.8-10.2); CREATININE FOR GFR 1.39 MG/DL (0.55-1.02); POTASSIUM SERUM 3.8 MEQ/L (3.5-5.1)
[2016-12-01 07:03] LABS: BASOPHILS 1 % (0-4); EOSINOPHILS 10 % (0-5); PLATELET CLUMPS MODERATE AMT
[2016-12-01 07:04] LABS: ANISOCYTOSIS 1+; POLYCHROMASIA 1+
[2016-12-01] MEDS: **hydrALAZINE** 50 MG TAB PO SCH ×2 (08:12→21:00)
[2016-12-01] MEDS: amLODIPine 10 MG TAB PO SCH (08:12)
[2016-12-01] MEDS: HumaLOG INSULIN (NovoLOG) PER UNIT SC SCH ×4 (08:36→21:30)
[2016-12-01] MEDS: METHYLDOPA 250 MG TAB PO SCH ×2 (08:37→21:28)
[2016-12-01] MEDS: predniSONE 5 MG TAB PO SCH (08:38)
[2016-12-01] MEDS: MORPHINE 15 MG SA TAB PO SCH ×2 (08:40→21:29)
[2016-12-01] MEDS: SENOKOT S TAB PO SCH ×2 (08:40→21:29)
[2016-12-01] MEDS: ATENOLOL 50 MG TAB PO SCH ×2 (08:41→21:29)
[2016-12-01] MEDS: SERTRALINE 100 MG TAB PO SCH (08:42)
[2016-12-01] MEDS: LEVEMIR (INSULIN DETEMIR) 1 UNITS/0.01ML SC SCH ×2 (08:42→21:00)
[2016-12-01] MEDS: MIRALAX *UNIT DOSE* 17GM PACKET PO SCH (09:00)
--- NOTE | 2016-12-01 12:54 | IPN ---
DATE: 12/01/2016 76-year-old female seen at bedside. She is diuresing well. She feels that her shortness of breath is much improved, but she is still requiring some supplemental oxygen. No chest pain. No nausea or vomiting. Her appetite is good. OBJECTIVE: Temperature is 96.9, pulse 73 and regular, respiratory rate is 20, blood pressure (BP) is 130/42, SPO2 is 93% on 2 liters. General: The patient appears to be in no acute distress. She is alert, oriented. HEENT: Jugular venous distention (JVD) is approximately 3-4 cm in the neck. Lungs: Diminished bibasilar breath sounds, occasional wheeze. Heart: Regular rate and rhythm. Abdomen is obese, soft and tender. Positive bowel sounds. Extremities: 1+ edema at the ankles. No calf tenderness. LABORATORIES: White count is 17.7, hemoglobin is 9.2 and platelets are estimated at 37. Sodium 144, potassium 3.8, chloride 108, bicarb 27, anion gap 9, BUN is 41, creatinine 1.39, glucose 137. ASSESSMENT/PLAN: 1. Acute diastolic congestive heart failure. She does appear to be improving with Lasix. Diuresing well. 1500 mL fluid restriction. 2. Acute metabolic encephalopathy combined with hypoxia and heart failure. This does appear to be improving as well. 3. Left lower lobe lung cancer with moderately differentiated adenocarcinoma. Followup outpatient. 4. Chronic lymphocytic leukemia diagnosed [address] Spangler for followup as an outpatient. 5. Leukocytosis, likely recovering from pneumonia. Trending downward. She has remains afebrile. 6. Thrombocytopenia, chronic. Stable. 7. Hypertension. Continue amlodipine, metoprolol and hydralazine. Hold the losartan until discharge. 8. Chronic obstructive pulmonary disease (COPD). Doing well on nebulizers. Will see if she needs to qualify for home oxygen. 9. Obstructive sleep apnea. Continue C-PAP. 10. Coronary artery disease, stable/ 11. Hypothyroidism. Continue Synthroid. 12. Anxiety. Continue medication. 13. Hyperlipidemia. Continue statin. 14. Chronic kidney disease (CKD) stage III. Creatinine appears to be stable/ 15. Diabetes. Continue to monitor fingersticks. Holding her glipizide and Januvia. Continue with the sliding scale coverage 16. Insomnia. Continue on trazodone and sertraline. 17. Chronic low back pain. Continue Antlers. 18. Deep vein thrombosis (DVT) prophylaxis is on board. DISPOSITION: Anticipate home discharge in the next 1-2 days once she is deemed euvolemic.
[2016-12-01] MEDS: ROSUVASTATIN 10 MG TAB (CRESTOR) PO SCH (21:28)
[2016-12-01] MEDS: ASPIRIN 81 MG ENTERIC TAB PO SCH (21:28)
[2016-12-02] MEDS: IPRATROPIUM 0.5MG/ALBUTEROL 2.5MG INH SOL UD 3ML (DUONEB)(J7620) NEB SCH ×4 (02:00→20:07)
[2016-12-02 04:00] VITALS: BP 156/62
[2016-12-02] MEDS: LEVOTHYROXINE 25MCG TABLET (0.025MG) PO SCH (06:05)
[2016-12-02] MEDS: SLF 3 ML SYR IV SCH ×3 (06:06→21:04)
[2016-12-02] MEDS: FUROSEMIDE 40 MG/4 ML VIAL (J1940) IV SCH ×2 (06:06→17:48)
[2016-12-02 06:08] LABS: ADD MANUAL DIFFER YES; DIFF SLIDE NUMBER 41; MEAN CORPUSCULAR HEMOGLOBIN 25.8 pg (27.0-33.0); MEAN CORPUSCULAR HGB CONC 31.9 g/dl (32.0-36.5); MEAN CORPUSCULAR VOLUME 80.9 fl (80.0-96.0); RED CELL DISTRIBUTION WIDTH 15.1 % (11.5-14.5); WHITE BLOOD COUNT 27.8 K/mm3 (4.0-10.0)
[2016-12-02 06:13] LABS: CREATININE FOR GFR 1.27 MG/DL (0.55-1.02); GLOMERULAR FILTRATION RATE 43.3 (>39); POTASSIUM SERUM 3.7 MEQ/L (3.5-5.1)
[2016-12-02 06:45] LABS: ANISOCYTOSIS 1+; BANDS 1 % (< 11); EOSINOPHILS 11 % (0-5); PLATELET CLUMPS LARGE AMT
[2016-12-02 07:30] VITALS: BP 152/58
[2016-12-02] MEDS: HumaLOG INSULIN (NovoLOG) PER UNIT SC SCH ×4 (07:30→21:05)
[2016-12-02] MEDS: MORPHINE 15 MG SA TAB PO SCH ×2 (08:42→21:02)
[2016-12-02] MEDS: METHYLDOPA 250 MG TAB PO SCH ×2 (08:42→21:03)
[2016-12-02] MEDS: **hydrALAZINE** 50 MG TAB PO SCH ×2 (08:43→21:00)
[2016-12-02] MEDS: SERTRALINE 100 MG TAB PO SCH (08:43)
[2016-12-02] MEDS: SENOKOT S TAB PO SCH ×2 (08:43→21:02)
[2016-12-02] MEDS: amLODIPine 10 MG TAB PO SCH (08:44)
[2016-12-02] MEDS: ATENOLOL 50 MG TAB PO SCH ×2 (08:44→21:01)
[2016-12-02] MEDS: predniSONE 5 MG TAB PO SCH (08:44)
[2016-12-02] MEDS: MIRALAX *UNIT DOSE* 17GM PACKET PO SCH ×2 (08:44→08:57)
[2016-12-02] MEDS: LEVEMIR (INSULIN DETEMIR) 1 UNITS/0.01ML SC SCH ×2 (08:45→21:00)
[2016-12-02] MEDS ORDERED: FUROSEMIDE 100 MG/10 ML VIAL (J1940) IV ONE (10:45)
[2016-12-02 12:00] VITALS: BP 150/56
--- NOTE | 2016-12-02 13:18 | REP ---
PA and lateral chest: Comparisons are 11/22/2016 and 12/05/1980, 11/29/2016. The patient has known multiple lung nodules and left lower lobe lung mass. There is opacification of the left lower lobe. The margins of the left lower lobe mass are obscured. The left lower lobe is opacified on the lateral view. Findings could represent atelectasis or infiltrate in the left lower lobe. Left upper lobe is clear. Right lung is clear. Cardiac size is normal. Impression: Diffuse increased density throughout the left lower lobe obscuring the margins of the patient's known left lower lobe mass consistent with atelectasis/infiltrate. There is no pneumothorax. Signed by Christian Torres MD 12/02/2016 08:56 A
--- NOTE | 2016-12-02 13:20 | IPN ---
DATE: 12/02/2016 76-year-old female who continue to diurese well. She feels her breathing is a little better. Will see about titrating her oxygen further today. She is having still some productive sputum for which we will check a sputum culture. She is to have a chest x-ray today as well. She denies chest pain. No nausea, vomiting. She is tolerating her meals. OBJECTIVE: Temperature is 96.7, pulse 70 and regular, respiratory rate 18, blood pressure (BP) 152/68, SPO2 96% on 2 liters. General: The patient appears to be in no acute distress. She is alert, pleasant. Ins and Outs: She shows a negative fluid balance of 285 mL and she is on a 1500 mL per day fluid restriction. HEENT: Unremarkable. Unable to determine jugular venous distention (JVD) today. Lungs: Diminished bibasilar breath sounds, occasional expiratory wheeze. Heart: Regular rate and rhythm. Abdomen is obese, soft, nontender, positive bowel sounds. No masses or rebound. Extremities: 1+ edema at the ankles. LABS AND DIAGNOSTICS: Chest x-ray is pending at this time. White count is 27.8 which is a steep arise from yesterday, hemoglobin 9.9 and platelets are marked as invalid. Sodium 145, potassium 3.7, chloride 109, bicarb 26, anion gap 10, BUN is 42, creatinine 1.27 - better than yesterday, and her glucose is 58. ASSESSMENT/PLAN: 1. Acute diastolic congestive heart failure exacerbation. She is diuresing well. Will continue with Lasix, fluid restriction and monitor her renal profile which does appear to be showing some gradual improvement. 2. Acute metabolic encephalopathy combined with hypoxia and heart failure. This does appear to be improved. Will continue to follow. 3. Left lower lobe lung cancer with moderate differential adenocarcinoma. Can followup outpatient. 4. Leukocytosis, multifactorial. Likely recovering from pneumonia versus her underlying chronic lymphocytic leukemia (CLL). She is additionally on prednisone. She remains afebrile. Will go ahead and repeat sputum and blood cultures. 5. Thrombocytopenia. This appears to be a chronic issue for her. She did not show any signs of bleeding. 6. Hypertension. Continue amlodipine, metoprolol, hydralazine. Will hold losartan until discharge. 7. Chronic obstructive pulmonary disease (COPD). Continue nebs. She continues on a low dose prednisone. 8. Obstructive sleep apnea. Continue C-PAP. 9. Coronary artery disease, stable. 10. Hypothyroidism. Continue Synthroid. 11. Anxiety, stable on current meds. 12. Hyperlipidemia, continue statin. 13. Chronic kidney disease (CKD) stage III. Creatinine is showing an improved trend. 14. Diabetes. Continue to hold glipizide, Januvia. Continue with fingersticks before meals and at bedtime, consistent carb diet and sliding scale coverage. 15. Insomnia, stable on trazodone and Sertraline. 16. Chronic low back pain. Continues as needed use of [place]. DISPOSITION: Anticipate from a medical standpoint she will be ready for home discharge in the next 24-48 hours. I did add on a physical therapy evaluation and treat. I would like to see how she does with her gait and ambulating to see if she is safe for home discharge.
[2016-12-02 16:00] VITALS: BP 132/54
[2016-12-02] MEDS ORDERED: LevoFLOXacin IV 250 MG in APPROPRIATE DILUENT 1 EA IV SCH (17:30)
[2016-12-02] MEDS: NORCO, ANEXSIA 5/325MG TABLET (HYDROcodone/ACETAMINOPHEN) PO PRN (17:50)
[2016-12-02] MEDS ORDERED: LevoFLOXacin IV 500 MG in APPROPRIATE DILUENT 1 EA IV ONE (19:00)
[2016-12-02 21:00] VITALS: BP 150/48
[2016-12-02] MEDS: ASPIRIN 81 MG ENTERIC TAB PO SCH (21:01)
[2016-12-02] MEDS: ROSUVASTATIN 10 MG TAB (CRESTOR) PO SCH (21:02)
[2016-12-02 23:59] VITALS: BP 162/60
[2016-12-03] MEDS: IPRATROPIUM 0.5MG/ALBUTEROL 2.5MG INH SOL UD 3ML (DUONEB)(J7620) NEB SCH ×4 (01:34→19:36)
[2016-12-03] MEDS: SLF 3 ML SYR IV SCH ×3 (05:56→20:30)
[2016-12-03] MEDS: FUROSEMIDE 40 MG/4 ML VIAL (J1940) IV SCH ×3 (05:56→18:02)
[2016-12-03] MEDS: LEVOTHYROXINE 25MCG TABLET (0.025MG) PO SCH (05:56)
[2016-12-03 06:05] LABS: ADD MANUAL DIFFER YES; DIFF SLIDE NUMBER 21; MEAN CORPUSCULAR HEMOGLOBIN 25.8 pg (27.0-33.0); MEAN CORPUSCULAR HGB CONC 31.9 g/dl (32.0-36.5); RED CELL DISTRIBUTION WIDTH 15.2 % (11.5-14.5); WHITE BLOOD COUNT 26.9 K/mm3 (4.0-10.0)
[2016-12-03 06:24] LABS: CALCIUM LEVEL 7.9 MG/DL (8.8-10.2); CREATININE FOR GFR 1.36 MG/DL (0.55-1.02); POTASSIUM SERUM 3.7 MEQ/L (3.5-5.1)
[2016-12-03 06:50] LABS: BANDS 1 % (< 11); EOSINOPHILS 10 % (0-5)
[2016-12-03 06:52] LABS: PLATELET CLUMPS MODERATE AMT
[2016-12-03 06:53] LABS: ANISOCYTOSIS 1+
[2016-12-03] MEDS: HumaLOG INSULIN (NovoLOG) PER UNIT SC SCH ×4 (08:50→20:26)
[2016-12-03] MEDS: METHYLDOPA 250 MG TAB PO SCH (08:51)
[2016-12-03] MEDS: amLODIPine 10 MG TAB PO SCH (08:51)
[2016-12-03] MEDS: MIRALAX *UNIT DOSE* 17GM PACKET PO SCH (08:52)
[2016-12-03] MEDS: **hydrALAZINE** 50 MG TAB PO SCH ×2 (08:52→19:53)
[2016-12-03] MEDS: predniSONE 5 MG TAB PO SCH (08:52)
[2016-12-03] MEDS: SERTRALINE 100 MG TAB PO SCH (08:53)
[2016-12-03] MEDS: SENOKOT S TAB PO SCH ×2 (08:53→20:28)
[2016-12-03] MEDS: MORPHINE 15 MG SA TAB PO SCH ×2 (08:53→20:27)
[2016-12-03] MEDS: ATENOLOL 50 MG TAB PO SCH ×2 (08:53→19:54)
[2016-12-03] MEDS: LEVEMIR (INSULIN DETEMIR) 1 UNITS/0.01ML SC SCH ×2 (08:53→20:27)
[2016-12-03] MEDS: NORCO, ANEXSIA 5/325MG TABLET (HYDROcodone/ACETAMINOPHEN) PO PRN ×3 (11:36→22:49)
[2016-12-03 12:00] VITALS: BP 123/54
[2016-12-03] MEDS ORDERED: ALPRAZolam 0.25 MG TAB PO ONE (12:00)
--- NOTE | 2016-12-03 12:14 | IPN ---
DATE: 12/03/2016 76-year-old seen at bedside. No overnight issues reported. However, we did start her on Levaquin yesterday due to a patchy infiltrate in the left lower lung field and elevated white count. She has not had any fevers overnight. She is having a nonproductive cough. We are waiting for blood cultures and sputum culture results. PHYSICAL EXAMINATION: Temperature is 97.7, pulse 69, respiratory rate is 20, blood pressure (BP) 150/48, SPO2 is 94% on 2 liters. General: The patient appears to be in no acute distress. She is alert, pleasant. HEENT: Unremarkable. Lungs: Expiratory wheeze. Heart: Regular rate and rhythm. Abdomen is obese, soft, nontender, nondistended, with positive bowel sounds. No masses. No rebound. Extremities: 1+ edema just above the ankles. Ins and Outs: For the last 24 hours, she is 780 over 1800 with negative fluid balance of 1020. White count is 26.9, hemoglobin 9.8 and platelets are invalid due to her underlying hematologic issues. Sodium is 141, potassium 3.7, chloride 105, bicarb 20, anion gap 8, BUN is 44, creatinine is 1.36, glucose 101. ASSESSMENT/PLAN: 1. Left lower lobe infiltrate, on Levaquin IV day #2. 2. Acute diastolic congestive heart failure exacerbation. Will go ahead and change her Lasix to net negative. Continue with fluid restriction. Continue to monitor on telemetry, renal profile and see how she does. I would like to see how she does with physical therapy as well. 3. Acute metabolic encephalopathy combined with hypoxia and heart failure, improved. 4. Leukocytosis, multifactorial. This does show some slight improvement from yesterday. 5. Underlying chronic lymphocytic leukemia with thrombocytopenia. Will continue to monitor. 6. Hypertension. Continue on amlodipine, metoprolol, hydralazine. Losartan currently on hold. 7. Chronic obstructive pulmonary disease (COPD). Continue with nebs, low-dose prednisone. 8. Obstructive sleep apnea. Continue C-PAP. 9. Coronary artery disease, stable. 10. Hypothyroidism. Continue Synthroid. 11. Anxiety, stable on meds. 12. Hyperlipidemia. Continue statin. 13. Chronic kidney disease (CKD) Stage III. Creatinine has shown an improved trend. 14. Diabetes. Continue to hold Januvia, glipizide. Continue fingersticks before meals and at bedtime. Consistent carb diet, sliding scale coverage 15. Insomnia. Continue trazodone, Sertraline. 16. Chronic low back pain, stable on [place]. DISPOSITION: The patient is showing some gradual improvement. Appreciate physical therapy's input regarding her gait and ambulation. I would like to make sure she is safe; however, she is still requiring some oxygen supplementation. I started her on antibiotics as outlined above yesterday and will see if she continues to diurese with net negative Lasix.
[2016-12-03 16:00] VITALS: BP 131/61
[2016-12-03] MEDS: LevoFLOXacin IV 250 MG in APPROPRIATE DILUENT 1 EA IV SCH (18:02)
[2016-12-03] MEDS ORDERED: ALPRAZolam 0.25 MG TAB PO PRN (18:15)
[2016-12-03 19:17] VITALS: BP 93/54
[2016-12-03] MEDS: ROSUVASTATIN 10 MG TAB (CRESTOR) PO SCH (20:27)
[2016-12-03] MEDS: ASPIRIN 81 MG ENTERIC TAB PO SCH (20:28)
[2016-12-03 23:59] VITALS: BP 122/60
[2016-12-04] MEDS: METHYLDOPA 250 MG TAB PO SCH ×3 (00:27→20:51)
[2016-12-04] MEDS: FUROSEMIDE 40 MG/4 ML VIAL (J1940) IV SCH ×2 (00:27→05:07)
[2016-12-04] MEDS: IPRATROPIUM 0.5MG/ALBUTEROL 2.5MG INH SOL UD 3ML (DUONEB)(J7620) NEB SCH ×4 (02:15→20:43)
[2016-12-04 04:45] VITALS: BP 124/58
[2016-12-04] MEDS: LEVOTHYROXINE 25MCG TABLET (0.025MG) PO SCH (05:07)
[2016-12-04] MEDS: SLF 3 ML SYR IV SCH ×3 (05:08→20:52)
[2016-12-04 06:06] LABS: CALCIUM LEVEL 7.9 MG/DL (8.8-10.2); CREATININE FOR GFR 1.52 MG/DL (0.55-1.02); GLOMERULAR FILTRATION RATE 35.2 (>39); POTASSIUM SERUM 3.6 MEQ/L (3.5-5.1)
[2016-12-04 07:12] LABS: ADD MANUAL DIFFER YES; DIFF SLIDE NUMBER 13; MEAN CORPUSCULAR HEMOGLOBIN 25.5 pg (27.0-33.0); MEAN CORPUSCULAR HGB CONC 31.5 g/dl (32.0-36.5); RED CELL DISTRIBUTION WIDTH 15.3 % (11.5-14.5); WHITE BLOOD COUNT 21.3 K/mm3 (4.0-10.0)
[2016-12-04 07:56] LABS: BANDS 3 % (< 11); EOSINOPHILS 6 % (0-5)
[2016-12-04 07:57] LABS: ANISOCYTOSIS 1+; HYPOCHROMASIA 1+; POLYCHROMASIA 1+
[2016-12-04 07:59] LABS: PLATELET CLUMPS MODERATE AMT
[2016-12-04 08:00] VITALS: BP 128/36
[2016-12-04] MEDS: HumaLOG INSULIN (NovoLOG) PER UNIT SC SCH ×5 (08:06→20:52)
[2016-12-04] MEDS: LEVEMIR (INSULIN DETEMIR) 1 UNITS/0.01ML SC SCH ×2 (09:00→20:52)
[2016-12-04] MEDS: ATENOLOL 50 MG TAB PO SCH ×2 (09:00→20:50)
[2016-12-04] MEDS: amLODIPine 10 MG TAB PO SCH (09:00)
[2016-12-04] MEDS: **hydrALAZINE** 50 MG TAB PO SCH ×2 (09:00→20:49)
[2016-12-04 09:14] VITALS: BP 112/60
[2016-12-04] MEDS ORDERED: FUROSEMIDE 100 MG/10 ML VIAL (J1940) IV ONE (09:15)
--- NOTE | 2016-12-04 09:25 | IPN ---
DATE: 12/04/2016 76-year-old female seen at bedside. She denies any productive sputum cough. No chest pain. No fever, chills. No nausea, vomiting. She is tolerating her morning meal. OBJECTIVE: Temperature 98, pulse 73, respiratory rate 18, blood pressure 128/36, SPO2 is 88% on 2 liters. GENERAL: The patient appears to be in no acute distress, is alert and pleasant. HEENT: Unremarkable. LUNGS: Diminished bibasilar breath sounds, occasional wheeze on the left. HEART: Regular rate and rhythm. ABDOMEN: Obese, soft, nontender. Positive bowel sounds. No masses. No rebound. EXTREMITIES: She has between 1 and 2+ edema, more notably on the left versus the right; however, pulses are equal. No calf tenderness. LABORATORY DATA: White count is 21,000 down from 27,000, hemoglobin is 8.7, platelets are unable to be determined. Sodium 140, potassium 3.6, chloride 105, bicarb 24, anion gap 11, BUN is 51, creatinine 1.52, glucose is 284. ASSESSMENT/PLAN: 1. Left lower lobe infiltrate. Levaquin IV day 3. 2. Acute diastolic congestive heart failure exacerbation. She still has a way to go before she is euvolemic. I did go ahead and stop her net negative Lasix. Will give her 100 mg of Lasix IV x1, repeat renal profile later today. I would like to see how she does with continuing physical therapy. She still seems to be somewhat weak and may need some assistance with her gait. At any rate, she likely is at least a couple liters positive with her fluid status. Will see how she does otherwise. 3. Acute metabolic encephalopathy, multifactorial, heart failure and likely left lower lobe infiltrate. This appears to be back to baseline. 4. Leukocytosis which is multifactorial, did show some slight improvement. 5. Chronic lymphocytic leukemia with thrombocytopenia. Will continue to monitor. 6. Hypertension. Continue amlodipine, metoprolol, hydralazine. Losartan currently on hold. She did have a bump in her creatinine today. Will need to continue to monitor this. 7. Chronic obstructive pulmonary disease (COPD). Continue with nebs, low-dose prednisone. 8. Obstructive sleep apnea with history of C-PAP use. 9. Coronary artery disease, stable. 10. Hypothyroidism, stable on Synthroid. 11. Anxiety. Continue medications. 12. Hyperlipidemia on statin therapy. 13. Chronic kidney disease, stage III. Again she did show a slight bump in her creatinine. However, I do want to see if we get some more fluid off of her. Will monitor this little more closely over the next 24-48 hours. 14. Diabetes. Continue to hold Januvia and glipizide. Continue with fingersticks before meals and at bedtime. Consistent carbohydrate diet. Sliding scale insulin coverage. 15. Insomnia. Doing well on trazodone and sertraline. 16. Chronic low back pain. Continue [place]. 17. Deep vein thrombosis (DVT) prophylaxis. Thromboembolic deterrent stockings (TEDS) and sequentials due to her thrombocytopenia. DISPOSITION: I do anticipate she will be here through the weekend. She will need to continue with physical therapy. We do need to see if we get better diuresis from her. Otherwise, she does appear to be stable and I am going to downgrade her to the medical floor.
[2016-12-04] MEDS: predniSONE 5 MG TAB PO SCH (09:35)
[2016-12-04] MEDS: SERTRALINE 100 MG TAB PO SCH (09:35)
[2016-12-04] MEDS: SENOKOT S TAB PO SCH ×2 (09:35→20:50)
[2016-12-04] MEDS: MORPHINE 15 MG SA TAB PO SCH ×2 (09:37→20:51)
[2016-12-04] MEDS: MIRALAX *UNIT DOSE* 17GM PACKET PO SCH (09:38)
[2016-12-04] MEDS: NORCO, ANEXSIA 5/325MG TABLET (HYDROcodone/ACETAMINOPHEN) PO PRN (13:04)
[2016-12-04 14:25] VITALS: BP 163/72
[2016-12-04 14:42] LABS: ALBUMIN 2.2 GM/DL (3.2-5.2); CALCIUM LEVEL 7.9 MG/DL (8.8-10.2); CREATININE FOR GFR 1.54 MG/DL (0.55-1.02); GLOMERULAR FILTRATION RATE 34.7 (>39); PHOSPHORUS LEVEL 2.4 MG/DL (2.5-4.9); POTASSIUM SERUM 3.5 MEQ/L (3.5-5.1)
[2016-12-04] MEDS: LevoFLOXacin IV 250 MG in APPROPRIATE DILUENT 1 EA IV SCH (18:12)
[2016-12-04 20:30] VITALS: BP 152/68
[2016-12-04] MEDS: ROSUVASTATIN 10 MG TAB (CRESTOR) PO SCH (20:49)
[2016-12-04] MEDS: ASPIRIN 81 MG ENTERIC TAB PO SCH (20:50)
[2016-12-05] MEDS: IPRATROPIUM 0.5MG/ALBUTEROL 2.5MG INH SOL UD 3ML (DUONEB)(J7620) NEB SCH ×4 (01:31→20:10)
[2016-12-05] MEDS: LEVOTHYROXINE 25MCG TABLET (0.025MG) PO SCH (05:31)
[2016-12-05] MEDS: SLF 3 ML SYR IV SCH ×3 (05:32→21:25)
[2016-12-05] MEDS: NORCO, ANEXSIA 5/325MG TABLET (HYDROcodone/ACETAMINOPHEN) PO PRN ×2 (05:32→14:11)
[2016-12-05 06:00] VITALS: BP 120/58
[2016-12-05 06:19] LABS: ADD MANUAL DIFFER YES; DIFF SLIDE NUMBER 5; MEAN CORPUSCULAR HEMOGLOBIN 25.9 pg (27.0-33.0); MEAN CORPUSCULAR HGB CONC 31.9 g/dl (32.0-36.5); MEAN CORPUSCULAR VOLUME 81.3 fl (80.0-96.0); RED CELL DISTRIBUTION WIDTH 15.5 % (11.5-14.5)
[2016-12-05 06:36] LABS: CALCIUM LEVEL 8.3 MG/DL (8.8-10.2); CREATININE FOR GFR 1.54 MG/DL (0.55-1.02); GLOMERULAR FILTRATION RATE 34.7 (>39); POTASSIUM SERUM 3.4 MEQ/L (3.5-5.1)
[2016-12-05 06:50] LABS: BANDS 1 % (< 11); EOSINOPHILS 9 % (0-5); PLATELET CLUMPS MODERATE AMT
[2016-12-05 06:51] LABS: HYPOCHROMASIA 1+; TOXIC VACUOLATION 1+
[2016-12-05] MEDS: MIRALAX *UNIT DOSE* 17GM PACKET PO SCH (08:41)
[2016-12-05] MEDS: SENOKOT S TAB PO SCH ×2 (08:41→21:22)
[2016-12-05] MEDS: METHYLDOPA 250 MG TAB PO SCH ×2 (08:41→21:00)
[2016-12-05] MEDS: predniSONE 5 MG TAB PO SCH (08:41)
[2016-12-05] MEDS: MORPHINE 15 MG SA TAB PO SCH ×2 (08:42→21:24)
[2016-12-05] MEDS: HumaLOG INSULIN (NovoLOG) PER UNIT SC SCH ×4 (08:43→21:00)
[2016-12-05] MEDS: SERTRALINE 100 MG TAB PO SCH (08:43)
[2016-12-05] MEDS: **hydrALAZINE** 50 MG TAB PO SCH ×2 (08:43→21:00)
[2016-12-05] MEDS: LEVEMIR (INSULIN DETEMIR) 1 UNITS/0.01ML SC SCH ×2 (08:44→21:25)
[2016-12-05] MEDS: amLODIPine 10 MG TAB PO SCH (08:44)
[2016-12-05] MEDS: ATENOLOL 50 MG TAB PO SCH ×2 (08:44→21:21)
--- NOTE | 2016-12-05 10:51 | IPN ---
DATE: 12/05/2016 A 76-year-old female seen at bedside. We are continuing to diurese her. She feels that her shortness of breath has improved. Her low lower extremity edema is starting to improve as well. No nausea or vomiting. She is tolerating meals. OBJECTIVE: VITAL SIGNS: Temperature is 98.3, pulse 69, respiratory rate 20, blood pressure 120/58, SPO2 is 90% on one liter nasal cannula. GENERAL: The patient appears to be in no acute distress. She is pleasant. HEENT: Unremarkable. LUNGS: Diminished bibasilar breath sounds, otherwise clear. HEART: Regular rate and rhythm. ABDOMEN: Soft. EXTREMITIES: Trace to 1+ edema just above the ankles. No calf tenderness. LABORATORY DATA: White count 21,000, hemoglobin 11.8, and platelets are clumped and noted to be a moderate amount. Sodium 141, potassium 3.4 which we will supplement, chloride 105, bicarbonate 29, anion gap 7, BUN is 51, creatinine 0.54, glucose is 131. ASSESSMENT AND PLAN: 1. Left lower lobe infiltrate. Levaquin IV day number four. 2. Acute diastolic congestive heart failure exacerbation. She does appear to be moving towards euvolemia. We do need to continue with some aggressive diuresis with IV Lasix for another 24-48 hours. 3. Acute metabolic encephalopathy, multifactorial and does appear to be resolved. 4. Leukocytosis, multifactorial, showed some slight improvement. 5. Chronic lymphocytic leukemia (CLL) with thrombocytopenia. Continue to monitor. Again, this could be contributing to her leukocytosis and she does not appear to be febrile or any signs of sepsis. 6. Hypertension. Continue amlodipine, metoprolol, hydralazine. Losartan is currently on hold. 7. Hypokalemia, which we will replete. 8. Chronic obstructive pulmonary disease (COPD), stable. Continue low-dose prednisone and nebulizers. Additionally, this could be accounting for her leukocyte demargination. 9. Sleep apnea, history of continuous positive airway pressure (CPAP) use. 10. Coronary artery disease, stable. 11. Hypothyroidism, on Synthroid. 12. Anxiety. Continue current medications. 13. Hyperlipidemia. Continue on statin therapy. 14. Chronic kidney disease (CKD), stage III. She had a slight bump in her creatinine briefly but this does appear to be trending downward. We will continue on Lasix twice a day. 15. Diabetes. Januvia and glipizide on hold. Continue fingersticks before meals and at bedtime, consistent-carbohydrate diet, and sliding scale insulin coverage. 16. Insomnia, stable on trazodone and sertraline. 17. Chronic low back pain. Continue [place] as needed. 18. Deep vein thrombosis (DVT) prophylaxis. Thromboembolic-deterrent stockings (TEDS) and sequentials. DISPOSITION: We will see how she does with physical therapy. She is diuresing well. Hopefully, she will be ready for home discharge in the next 24-48 hours. We will need to determine whether she needs home oxygen.
[2016-12-05] MEDS ORDERED: POTASSIUM CHLORIDE 10 MEQ SR TABLET PO ONE (11:00)
[2016-12-05] MEDS: FUROSEMIDE 40 MG TAB PO SCH ×2 (11:37→16:55)
[2016-12-05 14:00] VITALS: BP 127/57
[2016-12-05] MEDS: guaiFENesin ER 600 MG TAB PO SCH ×2 (14:08→21:22)
[2016-12-05] MEDS ORDERED: LevoFLOXacin 250 MG TABLET PO SCH (18:00)
[2016-12-05] MEDS: ROSUVASTATIN 10 MG TAB (CRESTOR) PO SCH (21:20)
[2016-12-05] MEDS: ASPIRIN 81 MG ENTERIC TAB PO SCH (21:21)
[2016-12-05 22:00] VITALS: BP 159/70
[2016-12-06] VITALS (20 sets, daily range): BP systolic 113–226; BP diastolic 53–103; O2SAT 90
[2016-12-06] MEDS: IPRATROPIUM 0.5MG/ALBUTEROL 2.5MG INH SOL UD 3ML (DUONEB)(J7620) NEB SCH ×2 (02:00→07:12)
[2016-12-06] MEDS: LEVOTHYROXINE 25MCG TABLET (0.025MG) PO SCH (06:07)
[2016-12-06] MEDS: SLF 3 ML SYR IV SCH ×3 (06:08→20:37)
[2016-12-06 06:45] LABS: ADD MANUAL DIFFER YES; DIFF SLIDE NUMBER 10; MEAN CORPUSCULAR HEMOGLOBIN 25.6 pg (27.0-33.0); MEAN CORPUSCULAR HGB CONC 31.7 g/dl (32.0-36.5); RED CELL DISTRIBUTION WIDTH 15.9 % (11.5-14.5)
[2016-12-06 06:51] LABS: WHITE BLOOD COUNT 38.1 K/mm3 (4.0-10.0)
[2016-12-06 06:58] LABS: CALCIUM LEVEL 8.2 MG/DL (8.8-10.2); CREATININE FOR GFR 1.65 MG/DL (0.55-1.02)
[2016-12-06] MEDS ORDERED: FUROSEMIDE 100 MG/10 ML VIAL (J1940) IV ONE (07:00)
[2016-12-06 07:16] LABS: EOSINOPHILS 6 % (0-5)
[2016-12-06 07:18] LABS: HYPOCHROMASIA 1+
[2016-12-06 07:19] LABS: ANISOCYTOSIS 1+; PLATELET CLUMPS MODERATE AMT
[2016-12-06 07:20] LABS: POLYCHROMASIA 1+
[2016-12-06] MEDS: HumaLOG INSULIN (NovoLOG) PER UNIT SC SCH ×3 (07:30→17:53)
[2016-12-06 07:53] LABS: ABG HCO3 25.8 MEQ/L (22.0-26.0); ABG PARTIAL PRESSURE O2 56.2 mmHg (75.0-100.0); ABG STANDARD HCO3 26.1 MEQ/L (22.0-26.0); ABG TOTAL CO2 26.9 MEQ/L (23.0-31.0); ABG pH (ARTERIAL) 7.461 UNITS (7.350-7.450)
[2016-12-06] MEDS: predniSONE 5 MG TAB PO SCH (08:39)
[2016-12-06] MEDS: guaiFENesin ER 600 MG TAB PO SCH (08:40)
[2016-12-06] MEDS: SERTRALINE 100 MG TAB PO SCH (08:40)
[2016-12-06] MEDS: MIRALAX *UNIT DOSE* 17GM PACKET PO SCH (08:41)
[2016-12-06] MEDS: **hydrALAZINE** 50 MG TAB PO SCH (08:41)
[2016-12-06] MEDS: MORPHINE 15 MG SA TAB PO SCH ×2 (08:41→09:50)
[2016-12-06] MEDS: amLODIPine 10 MG TAB PO SCH (08:42)
[2016-12-06] MEDS: METHYLDOPA 250 MG TAB PO SCH (08:42)
[2016-12-06] MEDS: SENOKOT S TAB PO SCH (08:43)
[2016-12-06] MEDS: ATENOLOL 50 MG TAB PO SCH (08:43)
[2016-12-06] MEDS: LEVEMIR (INSULIN DETEMIR) 1 UNITS/0.01ML SC SCH (08:44)
[2016-12-06] MEDS ORDERED: CHLORHEXIDINE GLUCONATE 0.12 % 15ML UDC (PERIDEX ORAL RINSE) MT SCH (09:00)
[2016-12-06] MEDS ORDERED: POTASSIUM CHLORIDE 10 MEQ SR TABLET PO SCH (09:00)
[2016-12-06] MEDS ORDERED: PANTOPRAZOLE 40MG INJ (PROTONIX) (C9113) IV SCH (09:00)
[2016-12-06] MEDS ORDERED: ETOMIDATE INJ 20MG/10ML VIAL As Ordered ONE (09:11)
[2016-12-06] MEDS ORDERED: ROCURONIUM BROMIDE 50 MG/5 ML VIAL/SYRINGE As Ordered ONE (09:11)
--- NOTE | 2016-12-06 09:29 | IPN ---
DATE: 12/06/2016 ATTENDING PHYSICIAN: Dr. Reyes Grayson PRIMARY CARE PROVIDER: Carmina Sierra HISTORY: Deborah Escobar is being rounded on for the hospitalists, I was called for worsening shortness of breath. Oxygen saturation of 82% this morning. I reviewed her case which in summary consists of a patient who has had a screening CT scan of the chest done by our oncologist 11/01 that showed a left lung mass, underwent CT guided needle biopsy of this 11/24 which showed non-small cell adenocarcinoma. She has not had formal staging yet. I do not see a CT of the chest with contrast or PET scan. She was admitted for obstructive pneumonia. This morning she is short of breath. Chest x-ray was performed and she has atelectasis of the entire left lung and infiltrates in the right lung. PHYSICAL EXAMINATION: 92% 02 saturation on a 15 liter non-rebreather. 162/58. Pulse is 70. GENERAL APPEARANCE: She is alert and conversant. Less respiratory distress than I anticipated thought dyspneic with discussion. No jugular venous distention (JVD). LUNGS: No breath sounds on the left. Rhonchi right base. Trachea is not shift. HEART: Regular rate and rhythm. ABDOMEN: Soft, nontender. No peripheral edema. LABS: White count 38,000, hemoglobin 95, platelets are clumped. Sodium 140. Potassium 4.0. BUN 61. Creatinine 1.6. EBG 7.46/37/56/89. Chest x-ray was reviewed, no air is seen in the left hemithorax. IMPRESSION: 1. Atelectasis left lung, post obstructive. Patient has a known left lung mass not fully staged yet which by biopsy shows non-small cell lung cancer. She has not seen her oncologist for this yet. At this point the patient is full code. I had a long michael discussion with her daughter who is a nurse, who lives in [place], there is some aspects unrelated to the current emergency situation that will be summarized below. I have refocused her on the problem at hand - her mother is full code, but has a yet un-staged lung cancer who may need bronchoscopic intervention and decision needs to be made about how aggressive they want to be about this. Stat consultation with Dr. Guzmán will be obtained after the end of the dictation. Patient is stable and staying in [facility] until I have that discussion. 2. Post obstructive pneumonia. She is on Levaquin. I am not sure how much we are going to get out of the antibiotic with the obstruction. 3. Diastolic heart failure. It appears they thought she was in some heart failure, I think it is mostly related to her pulmonary issues. I would not aggressively diuresis her at this point. She has some renal insufficiency, she is on a fairly aggressive fluid restriction. 4. CLL. She has CLL, but her white count is taking quite a jump from her baseline, I think this is related to her infection. 5. Hypertension. Losartan is on hold. Blood pressure is under adequate control. 6. Obstructive sleep apnea (ANDREA). She uses CPAP. 7. Hypothyroidism. Reduce the dose of Synthroid. 8. Anxiety. Per the daughter, patient's son is advocating more liberal use of Xanax and narcotics with tenuous pulmonary status and full code status, I would be hesitant to give her sedatives, she can go into respiratory failure. 9. Diabetes. Oral agents are on hold. She is on fingersticks with coverage. 10. Chronic kidney disease. Need to watch this closely. If creatinine rises further, I would back off on her diuretics not given she has as much heart failure. 11. Depression/insomnia. She is on Trazodone and sertraline. Avoid sedatives - benzodiazepines due to full code status, tenuous pulmonary status. 12. Social issues. Per the daughter, son is "bizarre" (her description) she says that he has been flushing her hospital provided meals down the toilet and bringing in food that is not on her diabetic diet and he has self-mediating with the patient's Xanax and Tylenol #3. She wanted me to talk with him. While these social issues are important, they are obviously eclipsed by the acute pulmonary situation at hand and I tired to redirect her towards focusing on how aggressive they want to be upon arrival of the insulating machine operator to assess this left lung collapse.
[2016-12-06] MEDS ORDERED: MIDAZOLAM INJ 2 MG/2 ML VIAL (J2250) As Ordered ONE (09:37)
[2016-12-06] MEDS ORDERED: methylPREDNISolone INJ 125 MG/2 ML VIAL (J2930) IV SCH (10:00)
[2016-12-06] MEDS ORDERED: MIDAZOLAM INJ 2 MG/2 ML VIAL (J2250) IV ONE (10:15)
[2016-12-06] MEDS ORDERED: ETOMIDATE INJ 20MG/10ML VIAL IV ONE (10:15)
[2016-12-06] MEDS ORDERED: ROCURONIUM BROMIDE 50 MG/5 ML VIAL/SYRINGE IV ONE (10:15)
[2016-12-06] MEDS ORDERED: PROPOFOL 1,000 MG/100 ML VIAL As Ordered ONE (10:22)
[2016-12-06] MEDS: PROPOFOL 1,000 MG in APPROPRIATE DILUENT 1 EA IV SCH ×3 (10:30→18:28)
--- NOTE | 2016-12-06 10:31 | REP ---
PORTABLE CHEST, ONE VIEW: HISTORY: Intubation. There is complete opacification of the left hemothorax. Infiltrates are present in the right upper and lower lobes. An ET tube is present. IMPRESSION: 1. Complete opacification of the left hemithorax unchanged compared to the previous study. 2. Right upper and lower lobe infiltrates unchanged compared to the previous study. 3. The patient is status post ET tube placement. Signed by Chris Dillard MD 12/06/2016 10:43 A
--- NOTE | 2016-12-06 10:33 | REP ---
CT study of the chest without contrast: History: Left lung opacity. Findings: Endotracheal tube is seen in good position. There is complete opacification of the left hemithorax with endobronchial material filling the tracheobronchial tree from the left hilus distally. There is some mucoid material in the right mainstem bronchus. There is extensive consolidation in the right lower lobe with air bronchograms. A small amount of left pleural fluid is noted as well. There is also some consolidation in the right middle lobe. No bony destructive lesion is seen. Impression: Findings consistent with mucous plugging filling the left mainstem bronchus and the distal left lung bronchial tree. There is complete consolidation and collapse in the left lung. There is evidence of some left pleural effusion as well. There is extensive infiltrate consistent with pneumonia in the right lower lobe and a small infiltrate is seen in the right upper lobe. Signed by Reed Baldwin MD 12/06/2016 10:57 A
--- NOTE | 2016-12-06 11:15 | REP ---
Portable chest x-ray: Single view. History: Decreased oxygen saturations. Comparison study: December 02, 2016. Findings: Today's sitting portable chest x-ray demonstrates complete opacification of the left hemithorax with volume loss consistent with atelectasis. The left mainstem bronchial silhouette is amputated. This may reflect mucous plugging. There is a new infiltrate in the right lower lobe and consolidation is seen above the minor fissure in the right upper lobe. Oxygen delivery tubing is seen. Impression: Complete atelectasis left lung, question mucous plugging at the left hilar level. There is also a large infiltrate in the right lower lobe and a small infiltrate in the right upper lobe. Signed by Reed Baldwin MD 12/06/2016 12:34 P
[2016-12-06] MEDS ORDERED: ALBUTEROL SULFATE 2.5 MG/0.5 ML INH NEB SOLN NEB PRN (11:45)
[2016-12-06] MEDS ORDERED: MORPHINE 2 MG/ML 1ML SYRINGE IV PRN (12:00)
[2016-12-06] MEDS: ALBUTEROL SULFATE 2.5 MG/0.5 ML INH NEB SOLN NEB SCH ×3 (12:00→20:00)
[2016-12-06] MEDS ORDERED: methylPREDNISolone INJ 40 MG/1 ML VIAL (J2920) IV SCH (12:00)
--- NOTE | 2016-12-06 12:29 | PHACANCOPD ---
PHARMACY VANCOMYCIN DOSING Pt Demographics Demographics Patient Age:76 , Weight:89.400 , Gender: female Adjusted Body Weight Date: 12/06/16, Adjusted Body Weight: [68.58] Kg Events Past 24 Hours Events Past 24 Hours: YES: Elevation in WBC, Pending Diagnostics Vancomycin Vancomycin indication: critical illness Vancomycin Target Ranges: 15-20 mcg/ml Vancomycin Load Y/N: Yes Load Dose Date Time Vancomycin Load Dose: 1500mg Date: 12/06/16 Time: 1300 Vancomycin Dose Date: 12/06/16. Current Vancomycin Dose: [1g IV Q24H] Intermittent Dosing?: No Labs Labs Item Value Date Time White Blood Count 38.1 K/mm3 *H 12/06/16 0629 White Blood Count 21.0 K/mm3 H 12/05/16 0526 White Blood Count 21.3 K/mm3 H 12/04/16 0631 White Blood Count 26.9 K/mm3 H 12/03/16 0540 Creatinine 1.65 MG/DL H 12/06/16 0629 Creatinine 1.54 MG/DL H 12/05/16 0526 Creatinine 1.54 MG/DL H 12/04/16 1357 Micro Microbiology 12/02/16 Blood Culture - Preliminary, Resulted No Growth after 72 hours. All specime... 11/29/16 Blood Culture - Final, Complete NO GROWTH AFTER 5 DAYS 11/29/16 Blood Culture - Final, Complete NO GROWTH AFTER 5 DAYS 11/29/16 Urine Culture - Final, Complete Creatinine Clearance Date:12/06/16. Estimated Creatinine Clearance: [~26ml/min]. Assessment and Plan Maintaining Current Dose?: Yes Reason for dose change: No Dose Change Pharmacist Note Pharmacist Note Date: 12/06/16. Pharmacist note: Day #1 empiric Zosyn/vancomycin initiated with a 1500mg loading dose, followed by a maintenance regimen of 1g IV Q24H for the treatment of post obstructive pneumonia - aiming for a goal trough of 15-20mcg/ ml. The patient is currently s/p 4 days of levaquin. Recent chest CT shows complete consolidation in the left lung and extensive infiltrates in the RLL, as well as smaller infiltrates in the RUL. The patient is currently afebrile with an elevated WBC. No PMH of MRSA or vanco use here at [facility]. We will continue to monitor and draw a trough/make dose adjustments accordingly. [facility] Dec 06, 2016 12:29
[2016-12-06] MEDS ORDERED: VANCOMYCIN HCL 1,000 MG, VIAL MATE ADAPTER 1 EACH in D5W 250 ML IV SCH (13:00)
[2016-12-06] MEDS: PIPERACILLIN/TAZOBACTAM SOD 3.375 GM in D5W MINI-BAG PLUS 50 ML IV SCH ×2 (13:21→17:53)
[2016-12-06 13:23] LABS: ABG HCO3 20.9 MEQ/L (22.0-26.0); ABG PARTIAL PRESSURE CO2 37.2 mmHg (35.0-45.0); ABG PARTIAL PRESSURE O2 91.3 mmHg (75.0-100.0); ABG STANDARD HCO3 21.1 MEQ/L (22.0-26.0); ABG pH (ARTERIAL) 7.367 UNITS (7.350-7.450)
--- NOTE | 2016-12-06 13:37 | RO ---
DATE OF PROCEDURE: 12/06/2016 PREPROCEDURE DIAGNOSIS: Respiratory distress POSTPROCEDURE DIAGNOSIS:Respiratory distress PROCEDURE: Endotracheal intubation. PROCEDURALIST: Dr. Savage Guzmán INTERNATIONAL NURSE: None ANESTHESIA: RSI as outlined below DESCRIPTION OF PROCEDURE: I was urgently called to the patient's bedside for hypoxia. The patient was on non rebreather saturating 80%. It was deemed urgent for intubation. The patient's family at bedside giving permission. Rapid sequence intubation was performed. DESCRIPTION OF PROCEDURE: Time-out was performed identifying correct site, correct procedure. The patient was placed in the sniffing position. Pre oxygenation with 100% non-rebreather provided. After adequate pre oxygenation, etomidate 20 mg followed by rocuronium 50 mg was given IV. I then viewed the vocal cords with the GlideScope #3. There was a grade 2 view. An 8.0 endotracheal tube was easily placed through the vocal cords and stylus was removed. Placement was confirmed using end-tidal CO2 monitoring, auscultation, direct visualization and chest x-ray. There were no observed complications. ALEX
--- NOTE | 2016-12-06 13:55 | RO ---
DATE OF PROCEDURE: 12/06/2016 PREOPERATIVE DIAGNOSIS: Abnormal chest x-ray/left hemithorax opacification. POSTOPERATIVE DIAGNOSIS: Abnormal chest x-ray/left hemithorax opacification, left mainstem obstruction. PROCEDURE: Bronchoscopy SURGEON: Dr. Savage Guzmán PAINT SPRAYING MACHINE OPERATOR HELPER: None. ANESTHESIA: The patient on propofol, intubated and sedated on mechanical ventilation. DESCRIPTION OF PROCEDURE: After a time-out was performed identifying two patient identifiers, correct site and correct procedure, the bronchoscope was advanced into the airways using Cetacaine spray. All airways were cleared. I was using the H-150 bronchoscope. I did switch to a trauma bronchoscope due to the amount of bloody secretions. Initially, there was complete occlusion of both airways with bloody mucus. The right was first cleared. This took quite a bit of suctioning, had old bloody mucus in the airway. Saline lavage was performed. I then after clearing the right lung started to clear the left lung; however, there was a large obstructing mass with clot around it. With forceps and brushes removing the clot, there was significant bleeding. Therefore, no further clot removal was attempted. The patient was placed back on mechanical ventilation and continues to have high peak pressure from left mainstem bronchus obstruction. Will discuss with family in regards to palliative care.
[2016-12-06] MEDS ORDERED: VANCOMYCIN HCL 500 MG in D5W MINI-BAG PLUS 100 ML IV ONE (14:00)
[2016-12-06] MEDS: FUROSEMIDE 40 MG TAB PO SCH (17:00)
[2016-12-06] MEDS ORDERED: SCOPOLAMINE 1.5 MG TRANSDERMAL TD PRN (18:45)
[2016-12-06] MEDS ORDERED: LORazepam 2 MG/ML VIAL (J2060) IV PRN (18:45)
[2016-12-06] MEDS: MORPHINE 2 MG/ML 1ML SYRINGE IV PRN ×5 (19:19→23:09)
[2016-12-07] MEDS: ALBUTEROL SULFATE 2.5 MG/0.5 ML INH NEB SOLN NEB SCH ×4 (00:24→11:13)
[2016-12-07] MEDS: MORPHINE 2 MG/ML 1ML SYRINGE IV PRN ×3 (02:59→05:59)
[2016-12-07] MEDS: SLF 3 ML SYR IV SCH (06:07)
[2016-12-07] MEDS ORDERED: POTASSIUM CHLORIDE 10 MEQ SR TABLET PO SCH (09:00)
--- NOTE | 2016-12-07 11:29 | DSES ---
DATE OF ADMISSION: 11/29/2016 DATE OF DISCHARGE: 12/07/2016 I met Deborah yesterday after she had respiratory failure, hypoxic in nature. Bronchoscopy showed a large left obstructing lung mass. At that point in time, it was determined by her entire family that she should be palliative, as she was having difficulty with respirations, not likely to be successful with treatment. They state that she would not want this kind of treatment and therefore she was made palliative care She was therefore made DO NOT RESUSCITATE, extubated to comfort measures. She early this morning. DISCHARGE DIAGNOSES 1. 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 2. Hypoxic respiratory failure. 3. History of chronic lymphocytic leukemia. 4. Chronic obstructive pulmonary disease. 5. Obstructive sleep apnea. 6. Diastolic congestive heart failure. 7. Diabetes. 8. Hypertension. 9. Hyperlipidemia. 10. Hypothyroidism. 11. Chronic thrombocytopenia with platelet clumping. 12. Nicotine dependence. No autopsy was desired. [facility]
--- NOTE | 2016-12-07 13:43 | IPN ---
DATE OF SERVICE: 12/06/2016 The patient was seen today earlier this morning because of worsening shortness of breath. The consult was given to us by Dr. Egan. The patient had an oxygen saturations this morning at 5:30 until 6 o'clock ranging a pulse oximetry of 70% to 73%, on 2 liters of oxygen via nasal cannula. When we saw the patient around 8 o'clock, she was on 15 liters of oxygen with a pulse oximetry of 90-92. When the patient was examined, she had difficulty breathing and was in respiratory failure. The patient also had some mild confusion, so we had a discussion with her son, who was at bedside, the next plan of action. We decided that we will be intubating the patient at bedside on 4 pavilion and then transfer her to ICU when beds were available. CRITICAL CARE TIME: Spent with the patient was 1 hour and 30 minutes, excluding all procedures. PHYSICAL EXAMINATION: Her vital signs when we saw her at bedside on 4 pavilion were pulse of 72, blood pressure of 150/62, 90% on a nonrebreather at 15 liters of oxygen. General appearance: The patient looked like in acute distress, wearing a nonrebreather with difficulty breathing and shortness of breath with mild confusion. Heart: Was Tachycardia rate and regular rhythm. . The patient was on atenolol 100 mg twice a day, which she took in that morning. Lungs: Right side rhonchi was appreciated, but left side breath sounds were diminished in the upper and lower lobe. There was no tracheal shift appreciated. Abdomen: Was soft, nontender, nondistended. positive bowl sounds. Extermity: No peripheral edema was appreciated. LABORATORIES: From this morning at 6:30am showed that the patient had a leukocytosis of 38.1, a hemoglobin of 9.5, hematocrit of 30.1, and a platelet that was not able to be read because of platelet clumping. Her chemistries from this morning showed sodium of 140, potassium of 4.0, chloride of 103, carbon dioxide of 26, a BUN of 61, and a creatinine of 1.65, fasting glucose showed 200. Chest x-ray from this morning at 6:30am showed complete atelectasis of the left lung, questionable mucus plug at the left hilar level. There is a large infiltrate in the right lower lobe and a small infiltrate in the right upper lobe. ASSESSMENT: 1. Acute hypoxic respiratory failure 2. Nonsmall cell carcinoma of the left lung. PLAN: The patient is currently on ventilation therapy. Tidal volume set at 400 , FiO2 at 100%, and the patient is currently saturating in the 90s. After bronchscopy and findings of a large obstructing mass we approached the family to discuss prognosis and expectations. The patient is not an ideal candidate for radiation therapy as she has very high oxygen requirements on mechanical ventilation. The family desired palliative care only. My preceptor for this patient encounter was Savage Guzmán DO. The preceptor was physically present in the room during the encounter and was fully available. As needed, all aspects of the patient interview, examination, medical decision making process, and medical care plan development were reviewed and approved by the preceptor. The preceptor is aware and concurs with the plan as stated in the body of this note and will attest to such by her cosignature. I, Savage Guzmán, conducted one hour and 30 minutes of critical care (excluding procedures) at this patient's bedside for her respiratory failure and acute on chronic hypoxia. There was concern for possible mucous plugging versus tumor causing airway obstruction. I agree with the outlined critical care above. [facility]
== END 2016-12-07 07:43 | disposition expired | DRG 166 ==
LOC: M ED 14:13 → M ED INP 18:46 → M PCU 21:55 → M MSPAV 12-04 14:20 → M ICU 12-06 09:55 → M MSPAV 12-06 20:04
PROVIDERS: ADMIT Internal Medicine Nephrology; ATTEND Internal Medicine Pulmonary Disease
PROC: 0B9M8ZZ Drainage of Bilateral Lungs, Via Natural or Artificial Opening Endoscopic (ICD-10-PCS; principal; 2016-12-06)
PROC: 0BH17EZ Insertion of Endotracheal Airway into Trachea, Via Natural or Artificial Opening (ICD-10-PCS; 2016-12-06)
PROC: 5A1935Z Respiratory Ventilation, Less than 24 Consecutive Hours (ICD-10-PCS; 2016-12-06)
DX: C34.32 Malignant neoplasm of lower lobe, left bronchus or lung (principal); G93.41 Metabolic encephalopathy; I50.33 Acute on chronic diastolic (congestive) heart failure; J18.9 Pneumonia, unspecified organism; J96.01 Acute respiratory failure with hypoxia; I13.0 Hypertensive heart and chronic kidney disease with heart failure and stage 1 through stage 4 chronic kidney disease, or unspecified chronic kidney disease; C91.90 Lymphoid leukemia, unspecified not having achieved remission; J44.9 Chronic obstructive pulmonary disease, unspecified; G47.33 Obstructive sleep apnea (adult) (pediatric); Z51.5 Encounter for palliative care; Z66 Do not resuscitate; I25.10 Atherosclerotic heart disease of native coronary artery without angina pectoris; E11.9 Type 2 diabetes mellitus without complications; E78.5 Hyperlipidemia, unspecified; E03.9 Hypothyroidism, unspecified; D69.6 Thrombocytopenia, unspecified; M54.5 Low back pain; G89.29 Other chronic pain; F17.210 Nicotine dependence, cigarettes, uncomplicated; F41.9 Anxiety disorder, unspecified; D72.829 Elevated white blood cell count, unspecified; N18.3 Chronic kidney disease, stage 3 (moderate); Z87.891 Personal history of nicotine dependence; Z79.82 Long term (current) use of aspirin; Z79.4 Long term (current) use of insulin; Z79.52 Long term (current) use of systemic steroids; Z79.899 Other long term (current) drug therapy; Z88.8 Allergy status to other drugs, medicaments and biological substances